=== PATIENT | male | born 1935 | race Caucasian/White ===

== ENCOUNTER 2016-06-20 13:51 | Outpatient (CLI) | payer MEDICARE | END 2016-06-20 13:52 | disposition home or self-care (01) | DX: I48.91 Unspecified atrial fibrillation (principal) ==

== ENCOUNTER 2016-07-28 08:00 | Outpatient (CLI) | payer MEDICARE | END 2016-07-28 08:01 | disposition home or self-care (01) | DX: I48.91 Unspecified atrial fibrillation (principal) ==

== ENCOUNTER 2016-08-29 08:00 | Outpatient (CLI) | payer MEDICARE | END 2016-08-29 23:59 | DX: I48.91 Unspecified atrial fibrillation (principal) ==

== ENCOUNTER 2016-09-11 13:10 | Outpatient (CLI) | payer MEDICARE | END 2016-09-11 13:11 | DX: I48.91 Unspecified atrial fibrillation (principal) ==

== ENCOUNTER 2016-09-25 14:12 | Outpatient (CLI) | payer MEDICARE | END 2016-09-25 14:13 | DX: I48.91 Unspecified atrial fibrillation (principal) ==

== ENCOUNTER 2016-11-30 08:00 | Outpatient (CLI) | payer MEDICARE | END 2016-11-30 08:01 | disposition home or self-care (01) | LOC: LAB.N 08:00 | PROVIDERS: ATTEND Physician Assistant | DX: I48.91 Unspecified atrial fibrillation (principal) | CPT/HCPCS: 85610 ==

== ENCOUNTER 2016-12-22 08:00 | Outpatient (CLI) | payer MEDICARE | END 2016-12-22 08:01 | disposition home or self-care (01) | LOC: LAB.N 08:00 | PROVIDERS: ATTEND Physician Assistant | DX: I48.91 Unspecified atrial fibrillation (principal) | CPT/HCPCS: 85610 ==

== ENCOUNTER 2017-03-09 11:35 | Outpatient (CLI) | payer MEDICARE | END 2017-03-09 11:36 | disposition home or self-care (01) | LOC: LAB.N 11:35 | PROVIDERS: ATTEND Physician Assistant | DX: I48.91 Unspecified atrial fibrillation (principal) | CPT/HCPCS: 85610 ==

== ENCOUNTER 2017-05-01 20:20 | Outpatient (CLI) | payer MEDICARE | END 2017-05-01 20:21 | disposition home or self-care (01) | LOC: LAB.N 20:20 | PROVIDERS: ATTEND Physician Assistant | DX: I48.91 Unspecified atrial fibrillation (principal) | CPT/HCPCS: 85610 ==

== ENCOUNTER 2017-07-10 14:28 | Outpatient (CLI) | payer MEDICARE | END 2017-07-10 14:29 | LOC: LAB.N 14:28 | PROVIDERS: ATTEND Physician Assistant | DX: I48.91 Unspecified atrial fibrillation (principal) | CPT/HCPCS: 85610 ==

== ENCOUNTER 2017-09-28 08:00 | Outpatient (CLI) | payer MEDICARE | END 2017-09-28 08:01 | LOC: LAB.N 08:00 | PROVIDERS: ATTEND Physician Assistant | DX: I48.91 Unspecified atrial fibrillation (principal) | CPT/HCPCS: 85610 ==

== ENCOUNTER 2018-02-09 16:41 | Outpatient (CLI) | payer MEDICARE, OTHER | END 2018-02-09 16:42 | disposition critical access hospital (66) | LOC: EMS 16:41 | PROVIDERS: ATTEND Surgery | DX: M25.551 Pain in right hip (principal); S01.01XA Laceration without foreign body of scalp, initial encounter; W18.39XA Other fall on same level, initial encounter; Y92.009 Unspecified place in unspecified non-institutional (private) residence as the place of occurrence of the external cause | CPT/HCPCS: A0425; A0429 ==

== ENCOUNTER 2018-02-09 16:51 | Inpatient (IN) | payer MEDICARE, OTHER ==
--- NOTE | 2018-02-09 17:03 | ED Physician Documentation ---
PD HPI MAJOR TRAUMA - Stated complaint Stated Complaint: GLF - Chief complaint Chief Complaint: Ext Problem - History obtained from History obtained from: Patient, EMS - History of Present Illness Mechanism of injury: Fell Where injury occurred: Home Timing - onset: How many hours ago (1) Injury(ies) location: Head, Right Lower Extremity (hip) Pain level max: 8 Pain level now: 5 Quality of pain: Pain, Dull Associated symptoms: No: LOC, AMS, Amnesia, Seizures, Ear drainage, Nasal drainage, Neck pain, Weakness, Paresthesias, Dyspnea, Nausea / vomiting Symptoms improve with: Rest Worsens with: Movement, Palpation Contributing factors: Anticoagulated (warfarin for afib) Similar symptoms before: Has not had sx before Recently seen: Not recently seen Review of Systems Ten Systems: 10 systems reviewed and negative Constitutional: denies: Fever, Chills Ears: denies: Ear pain Nose: denies: Rhinorrhea / runny nose, Congestion Throat: denies: Sore throat Cardiac: denies: Chest pain / pressure Respiratory: denies: Cough GI: denies: Abdominal Pain, Nausea, Vomiting, Diarrhea Skin: denies: Rash Musculoskeletal: denies: Neck pain Neurologic: denies: Focal weakness, Numbness, Syncope, Seizure, Confused, Altered mental status PD PAST MEDICAL HISTORY - Past Medical History Past Medical History: Yes Cardiovascular: Hypertension, Atrial fibrillation Endocrine/Autoimmune: Type 2 diabetes : Benign prostate hypertrophy - Past Surgical History Past Surgical History: Yes Ortho: Knee replacement (b) - Present Medications Home Medications: Ambulatory Orders Medication Instructions Recorded Confirmed Atorvastatin Calcium 40 mg PO 02/09/18 Doxazosin Mesylate [Cardura Xl] 8 mg PO 02/09/18 02/09/18 Ferrous Sulfate 325 mg PO 02/09/18 Finasteride [Proscar] 02/09/18 02/09/18 Levothyroxine Sodium 50 mcg PO 02/09/18 Lisinopril 5 mg PO 02/09/18 Sitagliptin Phosphate [Januvia] 25 mg PO 02/09/18 Warfarin Sodium [Coumadin] 2.5 mg PO DAILY 02/09/18 02/09/18 Warfarin [Coumadin] 5 mg PO 1400 02/09/18 02/09/18 metFORMIN [Glucophage] 500 mg PO BIDWM 02/09/18 02/09/18 - Allergies Allergies/Adverse Reactions: Allergies Allergy/AdvReac Type Severity Reaction Status Date / Time No Known Drug Allergies Allergy Verified 02/09/18 16:59 - Living Situation Living Situation: reports: With family Living Arrangement: reports: At home - Social History Does the pt smoke?: No Does the pt have substance abuse?: No PD ED PE NORMAL - Vitals Vital signs reviewed: Yes - General General: Alert and oriented X 3, No acute distress, Well developed/nourished - HEENT HEENT: PERRL, Moist mucous membranes, Other (abrasion to occiput. No palpable skull fractures. no hematoma) - Neck Neck: Supple, no meningeal sign, No bony TTP (No step-off or deformity. Full range of motion without pain) - Cardiac Cardiac: RRR - Respiratory Respiratory: No respiratory distress, Clear bilaterally - Abdomen Abdomen: Soft, Non tender, Non distended - Back Back: No spinal TTP - Derm Derm: Warm and dry - Extremities Extremities: Other (Right lower extremity is externally rotated and shortened. Neurovascularly intact) - Neuro Neuro: Alert and oriented X 3 - Psych Psych: Normal mood, Normal affect Results - Vitals Vitals: Vital Signs - 24 hr 02/09/18 16:54 Heart Rate 66 Respiratory 14 Rate Blood Pressure 137/66 H O2 Saturation 100 Oxygen O2 Source Room air - EKG (time done) 1709 Rate: Rate (enter#) (64) Rhythm: NSR [place]: Normal Intervals: Normal [place] QRS: Normal Ischemia: Normal ST segments Computer interpretation: Agree with computer - Labs Labs: Laboratory Tests 02/09/18 02/09/18 02/09/18 17:03 17:03 17:03 WBC 4.8 RBC 3.49 L Hgb 11.2 L Hct 31.9 L MCV 91.5 MCH 32.2 H MCHC 35.1 RDW 14.2 Plt Count 170 MPV 7.2 L Neut # (Auto) 3.7 Lymph # (Auto) 0.7 L [place] # (Auto) 0.3 Eos # (Auto) 0.1 Baso # (Auto) 0.1 Absolute Nucleated RBC 0.00 Nucleated RBC % 0.0 PT 22.1 H INR 2.0 H APTT 31.9 Sodium Potassium Chloride Carbon Dioxide Anion Gap BUN Creatinine Estimated GFR (MDRD) Glucose Calcium Total Bilirubin AST ALT Alkaline Phosphatase Total Protein Albumin Globulin Albumin/Globulin Ratio Lipase Blood Type O POSITIVE Antibody Screen NEGATIVE 02/09/18 17:03 WBC RBC Hgb Hct MCV MCH MCHC RDW Plt Count MPV Neut # (Auto) Lymph # (Auto) [place] # (Auto) Eos # (Auto) Baso # (Auto) Absolute Nucleated RBC Nucleated RBC % PT INR APTT Sodium 134 L Potassium 3.8 Chloride 102 Carbon Dioxide 23 Anion Gap 9.0 BUN 16 Creatinine 0.8 Estimated GFR (MDRD) 93 Glucose 182 H Calcium 9.0 Total Bilirubin 0.7 AST 22 ALT 19 Alkaline Phosphatase 75 Total Protein 6.8 Albumin 4.2 Globulin 2.6 Albumin/Globulin Ratio 1.6 Lipase 37 Blood Type Antibody Screen - Rads (name of study) R hip xray Radiology: Prelim report reviewed, EMP read contemporaneously, See rad report ( Intertrochanteric right hip fracture. ) head CT Radiology: Prelim report reviewed, EMP read contemporaneously, See rad report ( No acute abnormality) cxr Radiology: Prelim report reviewed, EMP read contemporaneously, See rad report ( No acute abnormality) PD MEDICAL DECISION MAKING - ED course Complexity details: reviewed results, re-evaluated patient, considered differential, d/w patient, d/w family, d/w technology sales consultant ED course: Patient is an 82-year-old male who presents to the emergency department after a fall today. Suffered a right intertrochanteric fracture of the hip. Discussed the case with Dr. Pulido, orthopedics who will plan to take to the operating room after medical stabilization and clearance. Discussed case with Dr. Bailey, hospitalist who accepts. No acute findings on head CT. Patient declines pain medication. He is on warfarin as well and will allow the hospitalist to reverse his INR. This document was made in part using voice recognition software. While efforts are made to proofread this document, sound alike and grammatical errors may occur. - Sepsis Event Vital Signs: Vital Signs - 24 hr 02/09/18 16:54 Heart Rate 66 Respiratory 14 Rate Blood Pressure 137/66 H O2 Saturation 100 Oxygen O2 Source Room air Departure - Departure Disposition: 66 [facility] DC/Xfer Clinical Impression: Intertrochanteric fracture of right hip Qualifiers: Encounter type: initial encounter Fracture type: closed Fracture alignment: displaced Qualified Code(s): S72.141A - Displaced intertrochanteric fracture of right femur, initial encounter for closed fracture Condition: Good Discharge Date/Time: 02/09/18 19:16
[2018-02-09 17:10] LABS: BASOPHILS # (AUTO) 0.1 10^3/uL (0.0-0.1); BASOPHILS % (AUTO) 1.1 %; EOSINOPHILS # (AUTO) 0.1 10^3/uL (0.0-0.7); EOSINOPHILS % (AUTO) 1.3 %; HGB - HEMOGLOBIN 11.2 g/dL (14.0-18.0); LYMPHOCYTES # (AUTO) 0.7 10^3/uL (1.5-3.5); LYMPHOCYTES % (AUTO) 14.6 %; MEAN CORPUSCULAR HEMOGLOBIN 32.2 pg (27.0-31.0); MEAN CORPUSCULAR HGB CONC 35.1 g/dL (32.0-36.0); MEAN CORPUSCULAR VOLUME 91.5 fL (80.0-94.0); MEAN PLATELET VOLUME 7.2 fL (7.4-11.4); MONOCYTES # (AUTO) 0.3 10^3/uL (0.0-1.0); MONOCYTES % (AUTO) 6.1 %; NEUTROPHILS # (AUTO) 3.7 10^3/uL (1.5-6.6); NEUTROPHILS % (AUTO) 76.9 %; PLT - PLATELET COUNT 170 10^3/uL (130-450); RED BLOOD COUNT 3.49 10^6/uL (4.70-6.10); RED CELL DISTRIBUTION WIDTH 14.2 % (12.0-15.0); WHITE BLOOD COUNT 4.8 x10^3/uL (4.8-10.8)
[2018-02-09 17:22] LABS: PT - PROTHROMBIN TIME 22.1 secs (9.9-12.6)
[2018-02-09 17:23] LABS: ALBUMIN 4.2 g/dL (3.2-5.5); ALBUMIN/GLOBULIN RATIO 1.6 (1.0-2.2); BILIRUBIN,TOTAL 0.7 mg/dL (0.2-1.0); CREATININE 0.8 mg/dL (0.6-1.2); TOTAL PROTEIN 6.8 g/dL (6.7-8.2)
--- NOTE | 2018-02-09 17:55 | XRAY Report ---
Reason: preop hip fx Procedure Date: 02/09/2018 Accession Number: [id number] / [id number] Procedure: XR - Chest 1 View X-Ray CPT Code: 83241 FULL RESULT: EXAM: CHEST RADIOGRAPHY EXAM DATE: 02/09/2018 05:36 PM. CLINICAL HISTORY: Preop hip fx. COMPARISON: None. TECHNIQUE: 1 view. FINDINGS: Lungs/Pleura: Bronchiectasis and scarring seen at the right lung apex. The left lung is clear. No pleural effusion or pneumothorax. Mediastinum: Within exam limitations, the cardiomediastinal contour is normal. Other: None. IMPRESSION: Right apical scarring and bronchiectasis. No acute cardiopulmonary process. RADIA
--- NOTE | 2018-02-09 17:58 | XRAY Report ---
Reason: fall, R hip injury Procedure Date: 02/09/2018 Accession Number: [id number] / [id number] Procedure: XR - Hip w/Pelvis 2-3V RT CPT Code: FULL RESULT: EXAM: RIGHT HIP AND PELVIS RADIOGRAPHY EXAM DATE: 02/09/2018 05:36 PM. HISTORY: Fall, R hip injury. COMPARISONS: None. TECHNIQUE: 1 view of the pelvis and 1 view of the hip. FINDINGS: Bones: There is an intertrochanteric right hip fracture with moderate displacement of the lesser trochanteric fracture fragment. Joints: The bilateral hip, pubis symphysis, and sacroiliac joints are preserved. Soft Tissues: Normal. No soft tissue swelling. IMPRESSION: Intertrochanteric right hip fracture. RADIA
--- NOTE | 2018-02-09 18:05 | CT Report ---
Reason: fall, head injury Procedure Date: 02/09/2018 Accession Number: [id number] / [id number] Procedure: CT - Head W/O CPT Code: FULL RESULT: EXAM: CT HEAD EXAM DATE: 02/09/2018 05:31 PM. CLINICAL HISTORY: Fall. Head injury. COMPARISON: None. TECHNIQUE: Multiaxial CT images were obtained from the foramen magnum to the vertex. Reformats: coronal. IV contrast: None. In accordance with CT protocol optimization, one or more of the following dose reduction techniques were utilized for this exam: automated exposure control, adjustment of mA and/or KV based on patient size, or use of iterative reconstructive technique. FINDINGS: Parenchyma: No intraparenchymal hemorrhage. No evidence of mass, midline shift, or CT findings of acute infarction. Ahuja-white differentiation is distinct. Mild chronic periventricular microangiopathic white matter changes are evident. Extraaxial Spaces: Normal for age. No subdural or epidural collections identified. Ventricles: The ventricles and cortical sulci are enlarged, consistent with age-related tissue loss. Sinuses and orbits: Chronic mucosal changes in the maxillary sinuses, otherwise the imaged paranasal sinuses, orbits, and mastoids show no significant abnormality. Bones: No evidence of fracture or calvarial defect. Other: None. IMPRESSION: Mild age-related cortical atrophic changes without evidence of acute intracranial abnormality. RADIA
[2018-02-09] MEDS ORDERED: MORPHINE 2 MG/ML CARPUJECT IVP PRN (18:15)
[2018-02-09] MEDS ORDERED: ONDANSETRON 4 MG/2 ML VIAL IVP PRN (18:15)
[2018-02-09] MEDS ORDERED: PHYTONADIONE 10 MG/ML AMP IVP STA ×2 (18:26)
--- NOTE | 2018-02-09 18:54 | HISTORY & PHYSICAL EXAMINATION ---
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 Pt report when he changed his pants at the hallway of his home, he fall in the ground. He denies loss of consciousness. He immediately recognized severe pain at his right hip. he denies other injuries. Xray of hip reveals intertrochanteric right hip fracture. INR is 2.0. Pt is planned to have surgery tomorrow. Vitamin K is planned to prescribe. Pt denies other complaints. Pt is hemodynamic stable, HR is 66, lab test is unremarkable. History - Past Medical History Cardiovascular: reports: Hypertension, Atrial fibrillation Endocrine/Autoimmune: reports: Type 2 diabetes : reports: Benign prostate hypertrophy MRSA Hx?: No - Past Surgical History Ortho: reports: Knee replacement (b) - Family & Social History Family History: Mother: , Father: Family History Comment/Other: pt is living at [facility] with his Living arrangement: At home Living Situation: With family Social History Notes: pt denies cigarett smoking, alcohol and drug issue - POLST POLST Status: Full Code Meds/Allgy - Home Medications Home Medications: Ambulatory Orders Medication Instructions Recorded Confirmed Atorvastatin Calcium 40 mg PO 02/09/18 Doxazosin Mesylate [Cardura Xl] 8 mg PO 02/09/18 02/09/18 Ferrous Sulfate 325 mg PO 02/09/18 Finasteride [Proscar] 02/09/18 02/09/18 Levothyroxine Sodium 50 mcg PO 02/09/18 Lisinopril 5 mg PO 02/09/18 Sitagliptin Phosphate [Januvia] 25 mg PO 02/09/18 Warfarin Sodium [Coumadin] 2.5 mg PO DAILY 02/09/18 02/09/18 Warfarin [Coumadin] 5 mg PO 1400 02/09/18 02/09/18 metFORMIN [Glucophage] 500 mg PO BIDWM 02/09/18 02/09/18 - Allergies Allergies/Adverse Reactions: Allergies Allergy/AdvReac Type Severity Reaction Status Date / Time No Known Drug Allergies Allergy Verified 02/09/18 16:59 Review of Systems - Constitutional Constitutional: denies: Fatigue, Fever, Chills, Malaise, Weakness, Poor appetite , Diaphoresis, Night sweats - Eyes Eyes: denies: Pain, Irritation, Amaurosis, Blurred vision, Spots in vision, Field loss, Vision loss, Dipolpia - Ears, Nose & Throat Ears, Nose & Throat: denies: Ear pain, Hearing loss, Hearing aids, Tinnitus, Vertigo, Nasal pain, Nasal discharge, Nosebleeds, Nasal obstruction, Nasal congestion, Postnasal drainage, Dentures, Hoarseness - Cardiovascular Cariovascular: denies: Irregular heart rate, Palpitations, Chest pain, Edema, Lightheadedness, Syncope, Exertional dyspnea, Decr. exercise tolerance - Respiratory Respiratory: denies: Cough, Sputum production, Wheezing, Snoring, Hemoptysis, Orthopnea, SOB at rest, SOB with exertion - Gastrointestinal Gastrointestinal: denies: Abdominal pain, Abdominal distention, Constipation, Diarrhea, Rectal bleeding, Black stools, Nausea, Vomiting, Bile emesis, Mike blood emesis - Genitourinary Genitourinary: denies: Dysuria, Frequency, Urgency, Hematuria, Incontinence, Flank pain, Nocturia, Urethral discharge - Musculoskeletal Musculoskeletal: reports: Limited range of motion, Joint pain. denies: Muscle pain, Back pain, Muscle aches, Stiffness, Muscle weakness, Gout - Integumentary Integumentary: denies: Rash, Pruritis, Lesions, Dryness, Lumps, Acne, Pigment changes, Nail changes - Neurological Neurological: denies: General weakness, Focal weakness, Headache, Dizziness, Numbness, Memory problems, Pre-existing deficit, Abnormal gait, Seizures, Incoordination, Slurred speech - Psychiatric Psychiatric: denies: Depression, Anxiety, Suicidal, Delusions, Hallucinations, Homicidal - Endocrine Endocrine: denies: Polyuria, Polydypsia, Polyphagia, Intolerance to cold - Hematologic/Lymphatic Hematologic/Lymphatic: denies: Anemia, Bruising, Petechiae, Blood clots, Lymphadenopathy, Bleeding tendencies Exam - Vital Signs Reviewed Vital Signs: Yes Vital Signs: Vital Signs x48h Pulse Resp BP Pulse Ox 02/09/18 16:54 66 14 137/66 H 100 - Physical Exam General Appearance: positive: No acute distress, Alert. negative: Lethargic Eyes Bilateral: positive: Normal inspection, PERRL, No lid inflammation, Conjunctivae nml ENT: positive: ENT inspection nml, Pharynx nml, No signs of dehydration. negative: Purulent nasal drainage, Pharyngeal erythema, Oral lesions Neck: positive: Nml inspection, Thyroid nml, No JVD, Trachea midline. negative : Thyromegaly, Lymphadenopathy (R), Lymphadenopathy (L), Stiff neck, Swelling/ bruising, Tracheal deviation Respiratory: positive: Chest non-tender, No respiratory distress, Breath sounds nml. negative: Wheezes, Rales, Rhonchi Cardiovascular: positive: Regular rate & rhythm, No murmur, No gallop. negative : Irregularly irregular, Extrasystoles, Tachycardia, Bradycardia, JVD present, Systolic murmur, Diastolic murmur Peripheral Pulses: positive: 2+ Abdomen: positive: Non-tender, No organomegaly, Nml bowel sounds, No distention. negative: Tenderness, Guarding, Rebound Back: positive: Nml inspection. negative: CVA tenderness (R), CVA tenderness (L ) Skin: positive: Color nml, No rash, Warm, Dry. negative: Cyanosis, Diaphoresis , Pallor Extremities: positive: Nml appearance. negative: Calf tenderness, Joint swelling, Jeana's sign/cords Neurologic/Psychiatric: positive: Oriented x3, Sensation nml, Mood/affect nml. negative: Weakness, Sensory loss, Facial droop, Slurred/abnml speech, Depressed mood/affect Conclusion/Plan - Problem List (1) Intertrochanteric fracture of right hip Conclusion/Plan: consult with orthopedics pain control 10 mg vitamin K IV to anti-coagulation Coumadin, not his INR is 2.0 NPO after midnight, IVF of NS Revised cardiac Risk index for pre-operative Risk is 0.9% Qualifiers: Encounter type: initial encounter Fracture type: closed Fracture alignment: displaced Qualified Code(s): S72.141A - Displaced intertrochanteric fracture of right femur, initial encounter for closed fracture (2) DM2 (diabetes mellitus, type 2) Conclusion/Plan: resume home DM meds, hold Metformin slide scale, ACHS check A1C hypoglycemia (3) Afib Conclusion/Plan: his HR is stable, hold Coumadin now PT/INR daily (4) HTN (hypertension) Conclusion/Plan: stable, will continue home meds vital monitor (5) BPH (benign prostatic hyperplasia) Conclusion/Plan: stable, will continue home meds (6) Hyperlipidemia Conclusion/Plan: stable, will continue home meds (7) DVT prophylaxis Conclusion/Plan: SCD and Lovenox (8) Full code status Conclusion/Plan: pt request full code status - Lab Results Fish Bones: 02/10/18 05:25 02/10/18 05:25 Core Measures - Anticipated LOS I expect patient to be DC'd or transferred within 96 hours.: Yes - DVT/VTE - Prophylaxis VTE/DVT Device ordered at admit?: Yes VTE/DVT Prophylaxis med ordered at admit?: Yes
--- NOTE | 2018-02-09 19:37 | PROVIDER PROGRESS NOTE ---
Subjective - Prog Note Date Prog Note Date: 02/09/18 Prog Note Time: 19:34 - Subjective Pt reports feeling: Worse (Patient [facility] a GLF at home today, injuring his right hip. Was unable to stand or weight bear on right side. XR in ED showed a right IT hip fracture) Objective - Vital Signs/Intake & Output Vital Signs: Vital Signs x48h Temp Pulse Resp BP Pulse Ox 02/09/18 19:29 36.2 C L 74 20 157/70 H 100 - Lab Results Fish Bones: 02/09/18 17:03 02/09/18 17:03 - Diagnostic Imaging Diagnostic Imaging Comments: XR show a right IT hip fracture with a large, displaced lesser trochanteric fragment - Other Results/Comments Other Results/Comments: Right leg is slightly shortened and externally rotated. Painful right hip motion. Moves toes well. SENSATION INTACT. GOOD CAP FILLING Assessment/Plan - Problem List (1) Intertrochanteric fracture of right hip Impression: closed and unstable fracture PLAN: After patient INR has been corrected (INR<1.3), we will plan to reduce and stabilze right hip fracture with a lonng interTan nailing of fracture. Tentatively scheduled for 0800 Sun AM. Risk/benefit of surgery explained to patient and his . Questions answered. Leg marked and consent signed. Qualifiers: Encounter type: initial encounter Fracture type: closed Fracture alignment: displaced Qualified Code(s): S72.141A - Displaced intertrochanteric fracture of right femur, initial encounter for closed fracture
[2018-02-09] MEDS ORDERED: PHYTONADIONE 10 MG/ML AMP IVP SCH (20:30)
[2018-02-09] MEDS: SODIUM CHLORIDE FLUSH 0.9% 10 ML SYRINGE IVP PRN (20:36)
[2018-02-09] MEDS ORDERED: PHYTONADIONE INJ (ADULT) 5 MG in SODIUM CHLORIDE 0.9% 50 ML IV SCH (20:45)
[2018-02-09] MEDS: FERROUS SULFATE 325 MG TABLET PO SCH (22:22)
[2018-02-09] MEDS: INSULIN ASPART 300 UNIT/3 ML PEN SUBQ SCH (22:23)
[2018-02-09] MEDS: MAGNESIUM OXIDE 400 MG TABLET PO SCH (22:23)
[2018-02-09] MEDS: DOXAZOSIN 4 MG TABLET PO SCH (22:23)
[2018-02-09] MEDS: ATORVASTATIN 40 MG TABLET PO SCH (22:23)
[2018-02-09] MEDS ORDERED: diphenhydrAMINE 25 MG CAPSULE PO PRN (22:30)
[2018-02-09] MEDS: SODIUM CHLORIDE FLUSH 0.9% 10 ML SYRINGE IVP SCH (23:51)
[2018-02-10] MEDS ORDERED: SODIUM CHLORIDE 0.9% 1,000 ML IV SCH (01:00)
--- NOTE | 2018-02-10 01:39 | CONSULTATION NOTE ---
DATE OF SERVICE: 02/09/2018 Physician: Preston Pulido MD ORTHOPEDIC CONSULTATION REFERRING PHYSICIAN: Murray Colin M.D., of the ED. 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 He fell onto his right side. He noted immediate pain and deformity to his upper leg. He was unable to stand or weight bear due to pain. Denies any other injuries. There was no lo ss of consciousness or nausea, vomiting. No prior hip fractures. Patient was taken by ambulance to the emergency room here at [facility] where x-ray showed an unstable, closed, right int ertrochanteric hip fracture. PAST MEDICAL HISTORY: Significant for intermittent atrial fibrillation, for which he has been treate d with Coumadin. Patient also is a diabetic. PHYSICAL EXAMINATION: Patient's right hip was examined. He had focal tenderness on palpation latera lly around the hip. His right leg was slightly shortened and externally rotated. There was painful range of motion to the hip. Patient is able to move his toes on command. Sensation intact throughou t the lower extremity. Good capillary filling noted. X-RAYS: Show an intertrochanteric right hip fracture with a large lesser trochanteric fragment displ aced. ASSESSMENT 1. Closed, unstable, right, intertrochanteric hip fracture. 2. History of atrial fibrillation. 3. Chronic Coumadin treatment for #2. 4. Diabetes. PLAN: Patient was admitted to the medical service for medical stabilization and management of his [facility] medical conditions. They will attempt to reverse his Coumadin with IV vitamin K this evening. It is anticipated that if we can bring his INR to 1.3 or less, we should be able to proceed with ochoa gical fixation of this fracture. If the morning blood draw shows the INR to be longer than 1.3, we w ill supplement with fresh frozen plasma as indicated. We will plan a closed reduction and a long Int ertan nailing of his fracture. The risks and benefits of surgery were explained to patient and his w brett including anesthesia risks, nonunion, malunion, hardware failure, blood loss, infection, blood cl ots, etc. All of his questions were answered. They have consented to proceed with surgical fixation likely Sunday morning at 8 o'clock, pending the correction of his INR and anticoagulation. The leg has been marked. Consent signed. TD: 02/09/2018 19:55
[2018-02-10] MEDS ORDERED: ceFAZolin 2 GM/50 ML 2 GM/50 ML BAG IV SCH (05:00)
[2018-02-10] MEDS: LEVOTHYROXINE 25 MCG TABLET PO SCH ×2 (05:21→12:02)
[2018-02-10 06:04] LABS: BASOPHILS % (AUTO) 0.2 %; EOSINOPHILS % (AUTO) 0.2 %; HGB - HEMOGLOBIN 8.7 g/dL (14.0-18.0); INR 1.5 (0.8-1.2); LYMPHOCYTES # (AUTO) 0.4 10^3/uL (1.5-3.5); MEAN CORPUSCULAR HEMOGLOBIN 32.4 pg (27.0-31.0); MEAN CORPUSCULAR HGB CONC 35.5 g/dL (32.0-36.0); MEAN CORPUSCULAR VOLUME 91.3 fL (80.0-94.0); MEAN PLATELET VOLUME 7.7 fL (7.4-11.4); MONOCYTES # (AUTO) 0.4 10^3/uL (0.0-1.0); MONOCYTES % (AUTO) 8.5 %; NEUTROPHILS % (AUTO) 82.1 %; PLT - PLATELET COUNT 154 10^3/uL (130-450); PT - PROTHROMBIN TIME 16.4 secs (9.9-12.6); RED BLOOD COUNT 2.68 10^6/uL (4.70-6.10); RED CELL DISTRIBUTION WIDTH 14.3 % (12.0-15.0); WHITE BLOOD COUNT 4.9 x10^3/uL (4.8-10.8)
[2018-02-10 06:14] LABS: ALBUMIN 3.5 g/dL (3.2-5.5); ALBUMIN/GLOBULIN RATIO 1.5 (1.0-2.2); BILIRUBIN,TOTAL 0.8 mg/dL (0.2-1.0); CALCIUM 8.4 mg/dL (8.5-10.3); CREATININE 0.7 mg/dL (0.6-1.2); MAGNESIUM 1.7 mg/dL (1.7-2.8); TOTAL PROTEIN 5.8 g/dL (6.7-8.2)
[2018-02-10 06:17] LABS: HB2 TOTAL 8.9 g/dL; HEMOGLOBIN A1C 0.31 g/dL; HEMOGLOBIN A1C % 5.3 % (4.6-6.2)
--- NOTE | 2018-02-10 07:13 | ANESTHESIA ---
Pre-Anesthesia VS, & Labs - Diagnosis Right Hip fracture - Procedure Right Hip Nailing Vital Signs: Temp Pulse Resp BP Pulse Ox 36.9 C 73 14 123/60 99 02/10/18 05:30 02/10/18 05:30 02/10/18 05:30 02/10/18 05:30 02/10/18 05:30 Height 6 ft 2 in Weight (kg) 99.5 kg Body Mass Index 28.1 - NPO >8 hours - Lab Results Lab results reviewed: Yes Fish Bones: 02/10/18 05:25 02/10/18 05:25 Other Lab Results: Laboratory Results - last 24 hr 02/09/18 02/09/18 02/09/18 17:03 17:03 17:03 WBC 4.8 RBC 3.49 L Hgb 11.2 L Hct 31.9 L MCV 91.5 MCH 32.2 H MCHC 35.1 RDW 14.2 Plt Count 170 MPV 7.2 L Neut # (Auto) 3.7 Lymph # (Auto) 0.7 L Stokes # (Auto) 0.3 Eos # (Auto) 0.1 Baso # (Auto) 0.1 Absolute Nucleated RBC 0.00 Nucleated RBC % 0.0 PT 22.1 H INR 2.0 H APTT 31.9 Sodium Potassium Chloride Carbon Dioxide Anion Gap BUN Creatinine Estimated GFR (MDRD) Glucose Glycated Hemoglobin Estim Average Glucose Calcium Magnesium Total Bilirubin AST ALT Alkaline Phosphatase Total Protein Albumin Globulin Albumin/Globulin Ratio Lipase TSH Blood Type O POSITIVE Antibody Screen NEGATIVE 02/09/18 02/10/18 02/10/18 17:03 05:25 05:25 WBC 4.9 RBC 2.68 L Hgb 8.7 L Hct 24.5 L MCV 91.3 MCH 32.4 H MCHC 35.5 RDW 14.3 Plt Count 154 MPV 7.7 Neut # (Auto) 4.0 Lymph # (Auto) 0.4 L Stokes # (Auto) 0.4 Eos # (Auto) 0.0 Baso # (Auto) 0.0 Absolute Nucleated RBC 0.00 Nucleated RBC % 0.0 PT INR APTT Sodium 134 L Potassium 3.8 Chloride 102 Carbon Dioxide 23 Anion Gap 9.0 BUN 16 Creatinine 0.8 Estimated GFR (MDRD) 93 Glucose 182 H Glycated Hemoglobin 5.3 Estim Average Glucose 105 H Calcium 9.0 Magnesium Total Bilirubin 0.7 AST 22 ALT 19 Alkaline Phosphatase 75 Total Protein 6.8 Albumin 4.2 Globulin 2.6 Albumin/Globulin Ratio 1.6 Lipase 37 TSH Blood Type Antibody Screen 02/10/18 02/10/18 02/10/18 05:25 05:25 05:25 WBC RBC Hgb Hct MCV MCH MCHC RDW Plt Count MPV Neut # (Auto) Lymph # (Auto) Stokes # (Auto) Eos # (Auto) Baso # (Auto) Absolute Nucleated RBC Nucleated RBC % PT 16.4 H INR 1.5 H APTT Sodium 128 L Potassium 4.0 Chloride 98 L Carbon Dioxide 23 Anion Gap 7.0 BUN 15 Creatinine 0.7 Estimated GFR (MDRD) 108 Glucose 218 H Glycated Hemoglobin Estim Average Glucose Calcium 8.4 L Magnesium 1.7 Total Bilirubin 0.8 AST 20 ALT 16 Alkaline Phosphatase 51 Total Protein 5.8 L Albumin 3.5 Globulin 2.3 Albumin/Globulin Ratio 1.5 Lipase TSH 1.51 Blood Type Antibody Screen Home Medications and Allergies Home Medications: Ambulatory Orders Medication Instructions Recorded Confirmed Atorvastatin Calcium 40 mg PO 02/09/18 Doxazosin Mesylate [Cardura Xl] 8 mg PO 02/09/18 02/09/18 Ferrous Sulfate 325 mg PO 02/09/18 Finasteride [Proscar] 02/09/18 02/09/18 Levothyroxine Sodium 50 mcg PO 02/09/18 Lisinopril 5 mg PO 02/09/18 Sitagliptin Phosphate [Januvia] 25 mg PO 02/09/18 Warfarin Sodium [Coumadin] 2.5 mg PO DAILY 02/09/18 02/09/18 Warfarin [Coumadin] 5 mg PO 1400 02/09/18 02/09/18 metFORMIN [Glucophage] 500 mg PO BIDWM 02/09/18 02/09/18 Allergies/Adverse Reactions: Allergies Allergy/AdvReac Type Severity Reaction Status Date / Time No Known Drug Allergies Allergy Verified 02/09/18 16:59 Anes History & Medical History - Anesthetic History Anesthesia Complications: reports: No previous complications Family history of Anesthesia Complications: Denies Family history of Malignant Hyperthermia: Denies - Medical History Cardiovascular: reports: Hypertension, Atrial fibrillation Pulmonary: reports: None Gastrointestinal: reports: GERD (Controlled with medication) Urinary: reports: Benign prostate hypertrophy Neuro: reports: None Musculoskeletal: reports: None Endocrine/Autoimmune: reports: Type 2 diabetes, HyPOthyroidism Blood Disorders: reports: None Skin: reports: None Smoking Status: Current every day smoker Psychosocial: reports: No issues indicated Other Past Medical History: Coumadin on hold. Patient received Vitamen K and FFP available. Type and crossmatch 2 units PRBC for low HgB - Surgical History General: Other (Bilateral hernia repair) Orthopedic: Knee replacement (b), Carpal Tunnel surgery Results - EKG Results EKG Comparison: Reviewed EKG Exam General: Alert, Oriented x3, Cooperative, No acute distress Dental: WNL Mouth Openin Fingerbreadth Neck Mobility: Normal Mallampati classification: II Thyromental Distance: 4-6 cm Respiratory: Lungs clear, Normal breath sounds, No respiratory distress, No accessory muscle use Cardiovascular: Regular rate, Other (II/IV systolic murmur. Patient reports he had a normal ECHO) Mental/Cognitive Status: Alert/Oriented X3, Normal for patient Cognitive Status: Within normal limits Plan Anesthesia Type: General Consent for Procedure(s) Verified and Reviewed: Yes Code Status: Attempt Resuscitation ASA classification: 3-Severe systemic disease Is this case an emergency?: Yes
[2018-02-10] MEDS ORDERED: BUPIVACAINE 0.25%-EPI 1:200000 PF 30 ML VIAL ONE (07:39)
[2018-02-10 08:00] LABS: INR 1.4 (0.8-1.2); PT - PROTHROMBIN TIME 15.3 secs (9.9-12.6)
[2018-02-10 08:00] LABS: MEAN RETIC VALUE 108.6; RED BLOOD COUNT 2.69 10^6/uL (4.70-6.10)
--- NOTE | 2018-02-10 08:17 | PROVIDER PROGRESS NOTE ---
Subjective - Prog Note Date Prog Note Date: 02/10/18 Prog Note Time: 08:14 - Subjective Pt reports feeling: No change Objective - Vital Signs/Intake & Output Vital Signs: Vital Signs x48h Temp Pulse Pulse Resp BP BP Pulse Ox 02/10/18 07:31 36.8 C 79 14 134/79 H 02/10/18 07:29 14 99 02/10/18 07:21 37.3 C 78 16 129/63 02/10/18 05:30 36.9 C 73 14 123/60 99 02/10/18 04:37 37.1 C 72 16 117/54 L 96 Intake & Output: Intake & Output 02/07/18 02/08/18 02/09/18 02/10/18 23:59 23:59 23:59 23:59 Intake Total 700.5 375 Output Total 150 400 Balance 550.5 -25 - Lab Results Fish Bones: 02/10/18 05:25 02/10/18 05:25 Other Labs: Lab Results x24hrs 02/10/18 02/10/18 02/10/18 Range/Units 07:36 05:25 05:25 WBC (4.8-10.8) x10^3/uL RBC 2.69 L (4.70-6.10) 10^6/uL Hgb (14.0-18.0) g/dL Hct (42.0-52.0) % MCV (80.0-94.0) fL MCH (27.0-31.0) pg MCHC (32.0-36.0) g/dL RDW (12.0-15.0) % Plt Count (130-450) 10^3/uL MPV (7.4-11.4) fL Reticulocyte % (Auto) 2.16 (0.5-2.3) % Neut # (Auto) (1.5-6.6) 10^3/uL Lymph # (Auto) (1.5-3.5) 10^3/uL Gregory # (Auto) (0.0-1.0) 10^3/uL Eos # (Auto) (0.0-0.7) 10^3/uL Baso # (Auto) (0.0-0.1) 10^3/uL Absolute Nucleated RBC x10^3/uL Nucleated RBC % /100WBC Absolute Retic 0.058 (0.020-0.110) 10^6/uL PT 15.3 H (9.9-12.6) secs INR 1.4 H (0.8-1.2) Sodium (135-145) mmol/L Potassium (3.5-5.0) mmol/L Chloride (101-111) mmol/L Carbon Dioxide (21-32) mmol/L Anion Gap (6-13) BUN (6-20) mg/dL Creatinine (0.6-1.2) mg/dL Estimated GFR (MDRD) (>89) Glucose (70-100) mg/dL Glycated Hemoglobin (4.6-6.2) % Estim Average Glucose (70-100) Calcium (8.5-10.3) mg/dL Magnesium (1.7-2.8) mg/dL Total Bilirubin (0.2-1.0) mg/dL AST (10-42) IU/L ALT (10-60) IU/L Alkaline Phosphatase (42-121) IU/L Lactate Dehydrogenase 114 (91-225) IU/L Total Protein (6.7-8.2) g/dL Albumin (3.2-5.5) g/dL Globulin (2.1-4.2) g/dL Albumin/Globulin Ratio (1.0-2.2) TSH (0.34-5.60) uIU/mL 02/10/18 02/10/18 02/10/18 Range/Units 05:25 05:25 05:25 WBC (4.8-10.8) x10^3/uL RBC (4.70-6.10) 10^6/uL Hgb (14.0-18.0) g/dL Hct (42.0-52.0) % MCV (80.0-94.0) fL MCH (27.0-31.0) pg MCHC (32.0-36.0) g/dL RDW (12.0-15.0) % Plt Count (130-450) 10^3/uL MPV (7.4-11.4) fL Reticulocyte % (Auto) (0.5-2.3) % Neut # (Auto) (1.5-6.6) 10^3/uL Lymph # (Auto) (1.5-3.5) 10^3/uL Gregory # (Auto) (0.0-1.0) 10^3/uL Eos # (Auto) (0.0-0.7) 10^3/uL Baso # (Auto) (0.0-0.1) 10^3/uL Absolute Nucleated RBC x10^3/uL Nucleated RBC % /100WBC Absolute Retic (0.020-0.110) 10^6/uL PT 16.4 H (9.9-12.6) secs INR 1.5 H (0.8-1.2) Sodium 128 L (135-145) mmol/L Potassium 4.0 (3.5-5.0) mmol/L Chloride 98 L (101-111) mmol/L Carbon Dioxide 23 (21-32) mmol/L Anion Gap 7.0 (6-13) BUN 15 (6-20) mg/dL Creatinine 0.7 (0.6-1.2) mg/dL Estimated GFR (MDRD) 108 (>89) Glucose 218 H (70-100) mg/dL Glycated Hemoglobin (4.6-6.2) % Estim Average Glucose (70-100) Calcium 8.4 L (8.5-10.3) mg/dL Magnesium 1.7 (1.7-2.8) mg/dL Total Bilirubin 0.8 (0.2-1.0) mg/dL AST 20 (10-42) IU/L ALT 16 (10-60) IU/L Alkaline Phosphatase 51 (42-121) IU/L Lactate Dehydrogenase (91-225) IU/L Total Protein 5.8 L (6.7-8.2) g/dL Albumin 3.5 (3.2-5.5) g/dL Globulin 2.3 (2.1-4.2) g/dL Albumin/Globulin Ratio 1.5 (1.0-2.2) TSH 1.51 (0.34-5.60) uIU/mL 02/10/18 02/10/18 Range/Units 05:25 05:25 WBC 4.9 (4.8-10.8) x10^3/uL RBC 2.68 L (4.70-6.10) 10^6/uL Hgb 8.7 L (14.0-18.0) g/dL Hct 24.5 L (42.0-52.0) % MCV 91.3 (80.0-94.0) fL MCH 32.4 H (27.0-31.0) pg MCHC 35.5 (32.0-36.0) g/dL RDW 14.3 (12.0-15.0) % Plt Count 154 (130-450) 10^3/uL MPV 7.7 (7.4-11.4) fL Reticulocyte % (Auto) (0.5-2.3) % Neut # (Auto) 4.0 (1.5-6.6) 10^3/uL Lymph # (Auto) 0.4 L (1.5-3.5) 10^3/uL Gregory # (Auto) 0.4 (0.0-1.0) 10^3/uL Eos # (Auto) 0.0 (0.0-0.7) 10^3/uL Baso # (Auto) 0.0 (0.0-0.1) 10^3/uL Absolute Nucleated RBC 0.00 x10^3/uL Nucleated RBC % 0.0 /100WBC Absolute Retic (0.020-0.110) 10^6/uL PT (9.9-12.6) secs INR (0.8-1.2) Sodium (135-145) mmol/L Potassium (3.5-5.0) mmol/L Chloride (101-111) mmol/L Carbon Dioxide (21-32) mmol/L Anion Gap (6-13) BUN (6-20) mg/dL Creatinine (0.6-1.2) mg/dL Estimated GFR (MDRD) (>89) Glucose (70-100) mg/dL Glycated Hemoglobin 5.3 (4.6-6.2) % Estim Average Glucose 105 H (70-100) Calcium (8.5-10.3) mg/dL Magnesium (1.7-2.8) mg/dL Total Bilirubin (0.2-1.0) mg/dL AST (10-42) IU/L ALT (10-60) IU/L Alkaline Phosphatase (42-121) IU/L Lactate Dehydrogenase (91-225) IU/L Total Protein (6.7-8.2) g/dL Albumin (3.2-5.5) g/dL Globulin (2.1-4.2) g/dL Albumin/Globulin Ratio (1.0-2.2) TSH (0.34-5.60) uIU/mL - Other Results/Comments Other Results/Comments: Exam: No change Lab: INR = 1.5 Repeat INR (after one unit of FFP)= 1.4 Assessment/Plan - Problem List (1) Intertrochanteric fracture of right hip Impression: Stable PLAN: After discussion with anesthesia, we will proceed with OR as planned this AM. Will also begin hanging an additional unit of FFP now and have it infusing as we proceed with the surgical procedure. Qualifiers: Encounter type: initial encounter Fracture type: closed Fracture alignment: displaced Qualified Code(s): S72.141A - Displaced intertrochanteric fracture of right femur, initial encounter for closed fracture
[2018-02-10 08:26] LABS: FERRITIN 36.8 ng/mL (23.9-336.2)
[2018-02-10] MEDS ORDERED: LACTATED RINGERS 1,000 ML IV ONE (08:26)
[2018-02-10 08:49] LABS: % IRON SATURATION 17 % (20-50); IRON 45 ug/dL (45-182); TOTAL IRON BINDING CAPACITY 259 ug/dL (250-450); TRANSFERRIN 185 mg/dL (180-329)
[2018-02-10] MEDS ORDERED: ENOXAPARIN 40 MG/0.4 ML SYRINGE SUBQ SCH (09:00)
[2018-02-10] MEDS ORDERED: SODIUM CHLORIDE 0.9% 1,000 ML IV ONE (09:00)
[2018-02-10] MEDS ORDERED: BUPIVACAINE 0.25%-EPI 1:200000 PF 30 ML VIAL SUBQ ONE ×2 (10:11)
[2018-02-10] MEDS ORDERED: ACETAMINOPHEN 1,000 MG/100 ML 100 ML IV ONE (10:32)
[2018-02-10] MEDS ORDERED: PROPOFOL 200 MG/20 ML VIAL IVP ONE (10:32)
[2018-02-10] MEDS ORDERED: ePHEDrine 50 MG/ML VIAL IVP ONE (10:32)
[2018-02-10] MEDS ORDERED: fentaNYL 100 MCG/2 ML VIAL IVP ONE (10:32)
[2018-02-10] MEDS ORDERED: ONDANSETRON 4 MG/2 ML VIAL IVP ONE (10:32)
[2018-02-10] MEDS ORDERED: DOCUSATE SODIUM 100 MG CAPSULE PO PRN (10:37)
[2018-02-10] MEDS ORDERED: PROCHLORPERAZINE 10 MG/2 ML VIAL IVP PRN (10:37)
[2018-02-10] MEDS ORDERED: SENNA 8.6 MG TABLET PO PRN (10:37)
[2018-02-10] MEDS ORDERED: SODIUM CHLORIDE FLUSH 0.9% 10 ML SYRINGE IVP PRN (10:37)
[2018-02-10] MEDS ORDERED: ONDANSETRON 4 MG/2 ML VIAL IVP PRN (10:37)
[2018-02-10] MEDS ORDERED: ACETAMINOPHEN 1,000 MG/100 ML 100 ML IV PRN (10:37)
[2018-02-10] MEDS ORDERED: ACETAMINOPHEN 325 MG TABLET PO PRN (10:37)
--- NOTE | 2018-02-10 10:44 | OPERATIVE REPORT ---
Operative Report - General Admit Date: 02/09/18 Procedure Date: 02/10/18 Planned Procedure: Long interTan nailing of right hip fracture Pre-Op Diagnosis: Unstable right intertrochanteric hip fracture Procedure Performed: Closed reduction and long locked interTan nailing of right hip fracture Post Op Diagnosis: Same - Procedure Note Primary Surgeon: Naga Pulido MD Secondary Surgeon: None Anesthesia Provider: Nasir Tyson CRNA Anesthesia Technique: General ET tube IV Fluids (mL): 1,400 (one unit FFP + one UNIT PRBC's given in OR) Estimated Blood Loss (mL): 250 Complications: None
[2018-02-10] MEDS: MAGNESIUM OXIDE 400 MG TABLET PO SCH (12:02)
[2018-02-10] MEDS: FINASTERIDE 5 MG TABLET PO SCH (12:02)
[2018-02-10] MEDS: LISINOPRIL 5 MG TABLET PO SCH (12:02)
[2018-02-10] MEDS: INSULIN ASPART 300 UNIT/3 ML PEN SUBQ SCH ×3 (12:02→16:55)
[2018-02-10] MEDS: FERROUS SULFATE 325 MG TABLET PO SCH (12:02)
[2018-02-10] MEDS: FAMOTIDINE 20 MG TABLET PO SCH (12:02)
[2018-02-10] MEDS: SODIUM CHLORIDE FLUSH 0.9% 10 ML SYRINGE IVP SCH ×3 (12:03→23:39)
[2018-02-10] MEDS: POLYETHYLENE GLYCOL 3350 17 GM PACKET PO SCH (12:03)
[2018-02-10] MEDS: SODIUM CHLORIDE 0.9% 1,000 ML IV SCH (13:15)
--- NOTE | 2018-02-10 13:35 | PROVIDER PROGRESS NOTE ---
Subjective - Prog Note Date Prog Note Date: 02/10/18 - Subjective Pt reports feeling: Improved Subjective: pt is comfortably lying at bed after surgery. pt did not complain pain. No other complaints reported. Current Medications - Current Medications Current Medications: Active Medications Acetaminophen (Tylenol) 650 mg PO Q4HR PRN PRN Reason: Pain 1 to 4 Acetaminophen (Tylenol) 650 - 975 mg PO Q4HR PRN PRN Reason: PAIN Atorvastatin Calcium (Lipitor) 40 mg PO QPM [facility] Last Admin: 02/09/18 22:23 Dose: 40 mg Diphenhydramine HCl (Benadryl) 25 mg PO QPM PRN PRN Reason: Insomnia Docusate Sodium (Colace 100mg Capsule) 100 mg PO BID PRN PRN Reason: Constipation Doxazosin Mesylate (Cardura) 8 mg PO QPM [facility] Last Admin: 02/09/18 22:23 Dose: 8 mg Famotidine (Pepcid) 20 mg PO DAILY [facility] Last Admin: 02/10/18 12:02 Dose: 20 mg Ferrous Sulfate (Feosol) 325 mg PO DAILYWM [facility] Finasteride (Proscar) 5 mg PO DAILY [facility] Last Admin: 02/10/18 12:02 Dose: 5 mg Cefazolin Sodium/Dextrose (Ancef 2 Gm/50 Ml) 2 gm in 50 mls @ 100 mls/hr IV Q8H [facility] Stop: 02/11/18 01:29 Acetaminophen (Ofirmev) 100 mls @ 400 mls/hr IV Q6HR PRN PRN Reason: PAIN Sodium Chloride (Normal Saline 0.9%) 1,000 mls @ 75 mls/hr IV .[id number] [facility] Stop: 02/11/18 15:39 Last Admin: 02/10/18 13:15 Dose: 75 mls/hr Insulin Aspart (Novolog) 1 - 5 unit SUBQ 0800,1200,1700,2100 [facility] PRN Reason: Protocol Last Admin: 02/10/18 13:15 Dose: Not Given Levothyroxine Sodium (Synthroid) 50 mcg PO QDAC [facility] Last Admin: 02/10/18 12:02 Dose: 50 mcg Lisinopril (Zestril) 5 mg PO DAILY [facility] Last Admin: 02/10/18 12:02 Dose: 5 mg Magnesium Oxide (Mag Ox) 400 mg PO DAILYWM [facility] Last Admin: 02/10/18 12:02 Dose: 400 mg Morphine Sulfate (Morphine (Carpuject)) 2 mg IVP Q2HR PRN PRN Reason: Pain 8 to 10 Ondansetron HCl (Zofran Inj) 4 mg IVP Q6HR PRN PRN Reason: Nausea / Vomiting Oxycodone HCl (Roxicodone) 5 mg PO Q4HR PRN PRN Reason: Pain 5 to 7 Polyethylene Glycol (Miralax) 17 gm PO DAILY [facility] Last Admin: 02/10/18 12:03 Dose: Not Given Prochlorperazine Edisylate (Compazine Inj) 10 mg IVP Q6HR PRN PRN Reason: Nausea / Vomiting Senna (Senokot) 17.2 mg PO Q12H PRN PRN Reason: Constipation Sodium Chloride (Normal Saline Flush 0.9%) 10 ml IVP PRN PRN PRN Reason: NEEDED PER PROVIDER ORDERS Last Admin: 02/09/18 20:36 Dose: 10 ml Sodium Chloride (Normal Saline Flush 0.9%) 10 ml IVP 0100,0900,1700 [facility] Last Admin: 02/10/18 12:03 Dose: Not Given Warfarin Sodium (Coumadin) 5 mg PO QDWARFARIN [facility] Zolpidem Tartrate (Ambien) 5 mg PO QPM PRN PRN Reason: Insomnia Atorvastatin Calcium 40 mg PO 02/09/18 Doxazosin Mesylate [Cardura Xl] 8 mg PO 02/09/18 Ferrous Sulfate 325 mg PO 02/09/18 Finasteride [Proscar] 02/09/18 Levothyroxine Sodium 50 mcg PO 02/09/18 Lisinopril 5 mg PO 02/09/18 Sitagliptin Phosphate [Januvia] 25 mg PO 02/09/18 Warfarin Sodium [Coumadin] 2.5 mg PO DAILY 02/09/18 Warfarin [Coumadin] 5 mg PO 1400 02/09/18 metFORMIN [Glucophage] 500 mg PO BIDWM 02/09/18 Objective - Vital Signs/Intake & Output Reviewed Vital Signs: Yes Vital Signs: Vital Signs x48h Temp Pulse Pulse Resp BP BP Pulse Ox 02/10/18 13:07 36.5 C 67 14 111/47 L 94 02/10/18 12:04 36.5 C 68 14 114/56 L 94 02/10/18 11:43 36.9 C 69 14 125/50 L 94 02/10/18 11:33 37.0 C 78 14 126/59 L 93 02/10/18 11:20 37.0 C 78 14 126/59 L 93 02/10/18 11:10 16 130/59 L 95 02/10/18 11:05 14 141/94 H 95 02/10/18 11:00 36.6 C 16 135/67 H 95 02/10/18 10:55 17 145/57 H 95 02/10/18 10:50 16 154/59 H 98 02/10/18 10:45 18 137/67 H 100 02/10/18 10:37 36.8 C 16 154/67 H 100 02/10/18 07:31 36.8 C 79 14 134/79 H 02/10/18 07:29 14 99 02/10/18 07:21 37.3 C 78 16 129/63 Intake & Output: Intake & Output 02/07/18 02/08/18 02/09/18 02/10/18 23:59 23:59 23:59 23:59 Intake Total 700.5 1785 Output Total 150 520 Balance 550.5 1265 - Objective General Appearance: positive: No acute distress, Alert. negative: Lethargic Eyes Bilateral: positive: Normal inspection, PERRL, No lid inflammation, Conjunctivae nml ENT: positive: ENT inspection nml, Pharynx nml, No signs of dehydration. negative: Purulent nasal drainage, Pharyngeal erythema, Oral lesions Neck: positive: Nml inspection, Thyroid nml, No JVD, Trachea midline. negative : Thyromegaly, Lymphadenopathy (R), Lymphadenopathy (L), Stiff neck, Swelling/ bruising, Tracheal deviation Respiratory: positive: Chest non-tender, No respiratory distress, Breath sounds nml. negative: Wheezes, Rales, Rhonchi Cardiovascular: positive: Regular rate & rhythm, No murmur, No gallop. negative : Irregularly irregular, Extrasystoles, Tachycardia, Bradycardia, JVD present, Systolic murmur, Diastolic murmur Peripheral Pulses: 2+ Radial (R), 2+ Radial (L), 2+ Dorsalis pedis (R), 2+ Dorsalis pedis (L) Abdomen: positive: Non-tender, No organomegaly, Nml bowel sounds, No distention. negative: Tenderness, Guarding, Rebound Back: positive: Nml inspection. negative: CVA tenderness (R), CVA tenderness (L ) Skin: positive: Color nml, No rash, Warm, Dry. negative: Cyanosis, Diaphoresis , Pallor Extremities: positive: Nml appearance. negative: Calf tenderness, Joint swelling, Jeana's sign/cords Neurologic/Psychiatric: positive: Oriented x3, Sensation nml, Mood/affect nml. negative: Weakness, Sensory loss, Facial droop, Slurred/abnml speech, Depressed mood/affect - Lab Results Fish Bones: 02/10/18 05:25 02/10/18 05:25 Other Labs: Lab Results x24hrs 02/10/18 02/10/18 02/10/18 Range/Units 07:36 06:38 05:25 WBC (4.8-10.8) x10^3/uL RBC (4.70-6.10) 10^6/uL Hgb (14.0-18.0) g/dL Hct (42.0-52.0) % MCV (80.0-94.0) fL MCH (27.0-31.0) pg MCHC (32.0-36.0) g/dL RDW (12.0-15.0) % Plt Count (130-450) 10^3/uL MPV (7.4-11.4) fL Reticulocyte % (Auto) (0.5-2.3) % Neut # (Auto) (1.5-6.6) 10^3/uL Lymph # (Auto) (1.5-3.5) 10^3/uL [place] # (Auto) (0.0-1.0) 10^3/uL Eos # (Auto) (0.0-0.7) 10^3/uL Baso # (Auto) (0.0-0.1) 10^3/uL Absolute Nucleated RBC x10^3/uL Nucleated RBC % /100WBC Absolute Retic (0.020-0.110) 10^6/uL PT 15.3 H (9.9-12.6) secs INR 1.4 H (0.8-1.2) Sodium (135-145) mmol/L Potassium (3.5-5.0) mmol/L Chloride (101-111) mmol/L Carbon Dioxide (21-32) mmol/L Anion Gap (6-13) BUN (6-20) mg/dL Creatinine (0.6-1.2) mg/dL Estimated GFR (MDRD) (>89) Glucose (70-100) mg/dL Glycated Hemoglobin (4.6-6.2) % Estim Average Glucose (70-100) Calcium (8.5-10.3) mg/dL Magnesium (1.7-2.8) mg/dL Iron (45-182) ug/dL TIBC (250-450) ug/dL % Saturation (20-50) % Transferrin (180-329) mg/dL Ferritin (23.9-336.2) ng/mL Total Bilirubin (0.2-1.0) mg/dL AST (10-42) IU/L ALT (10-60) IU/L Alkaline Phosphatase (42-121) IU/L Lactate Dehydrogenase 114 (91-225) IU/L Total Protein (6.7-8.2) g/dL Albumin (3.2-5.5) g/dL Globulin (2.1-4.2) g/dL Albumin/Globulin Ratio (1.0-2.2) Vitamin B12 (180-914) pg/mL TSH (0.34-5.60) uIU/mL Blood Type O POSITIVE Blood Type Recheck 02/10/18 02/10/18 02/10/18 Range/Units 05:25 05:25 05:25 WBC (4.8-10.8) x10^3/uL RBC 2.69 L (4.70-6.10) 10^6/uL Hgb (14.0-18.0) g/dL Hct (42.0-52.0) % MCV (80.0-94.0) fL MCH (27.0-31.0) pg MCHC (32.0-36.0) g/dL RDW (12.0-15.0) % Plt Count (130-450) 10^3/uL MPV (7.4-11.4) fL Reticulocyte % (Auto) 2.16 (0.5-2.3) % Neut # (Auto) (1.5-6.6) 10^3/uL Lymph # (Auto) (1.5-3.5) 10^3/uL [place] # (Auto) (0.0-1.0) 10^3/uL Eos # (Auto) (0.0-0.7) 10^3/uL Baso # (Auto) (0.0-0.1) 10^3/uL Absolute Nucleated RBC x10^3/uL Nucleated RBC % /100WBC Absolute Retic 0.058 (0.020-0.110) 10^6/uL PT (9.9-12.6) secs INR (0.8-1.2) Sodium (135-145) mmol/L Potassium (3.5-5.0) mmol/L Chloride (101-111) mmol/L Carbon Dioxide (21-32) mmol/L Anion Gap (6-13) BUN (6-20) mg/dL Creatinine (0.6-1.2) mg/dL Estimated GFR (MDRD) (>89) Glucose (70-100) mg/dL Glycated Hemoglobin (4.6-6.2) % Estim Average Glucose (70-100) Calcium (8.5-10.3) mg/dL Magnesium (1.7-2.8) mg/dL Iron 45 (45-182) ug/dL TIBC 259 (250-450) ug/dL % Saturation 17 L (20-50) % Transferrin 185 (180-329) mg/dL Ferritin 36.8 (23.9-336.2) ng/mL Total Bilirubin (0.2-1.0) mg/dL AST (10-42) IU/L ALT (10-60) IU/L Alkaline Phosphatase (42-121) IU/L Lactate Dehydrogenase (91-225) IU/L Total Protein (6.7-8.2) g/dL Albumin (3.2-5.5) g/dL Globulin (2.1-4.2) g/dL Albumin/Globulin Ratio (1.0-2.2) Vitamin B12 425 (180-914) pg/mL TSH (0.34-5.60) uIU/mL Blood Type Blood Type Recheck 02/10/18 02/10/18 02/10/18 Range/Units 05:25 05:25 05:25 WBC (4.8-10.8) x10^3/uL RBC (4.70-6.10) 10^6/uL Hgb (14.0-18.0) g/dL Hct (42.0-52.0) % MCV (80.0-94.0) fL MCH (27.0-31.0) pg MCHC (32.0-36.0) g/dL RDW (12.0-15.0) % Plt Count (130-450) 10^3/uL MPV (7.4-11.4) fL Reticulocyte % (Auto) (0.5-2.3) % Neut # (Auto) (1.5-6.6) 10^3/uL Lymph # (Auto) (1.5-3.5) 10^3/uL [place] # (Auto) (0.0-1.0) 10^3/uL Eos # (Auto) (0.0-0.7) 10^3/uL Baso # (Auto) (0.0-0.1) 10^3/uL Absolute Nucleated RBC x10^3/uL Nucleated RBC % /100WBC Absolute Retic (0.020-0.110) 10^6/uL PT 16.4 H (9.9-12.6) secs INR 1.5 H (0.8-1.2) Sodium 128 L (135-145) mmol/L Potassium 4.0 (3.5-5.0) mmol/L Chloride 98 L (101-111) mmol/L Carbon Dioxide 23 (21-32) mmol/L Anion Gap 7.0 (6-13) BUN 15 (6-20) mg/dL Creatinine 0.7 (0.6-1.2) mg/dL Estimated GFR (MDRD) 108 (>89) Glucose 218 H (70-100) mg/dL Glycated Hemoglobin (4.6-6.2) % Estim Average Glucose (70-100) Calcium 8.4 L (8.5-10.3) mg/dL Magnesium 1.7 (1.7-2.8) mg/dL Iron (45-182) ug/dL TIBC (250-450) ug/dL % Saturation (20-50) % Transferrin (180-329) mg/dL Ferritin (23.9-336.2) ng/mL Total Bilirubin 0.8 (0.2-1.0) mg/dL AST 20 (10-42) IU/L ALT 16 (10-60) IU/L Alkaline Phosphatase 51 (42-121) IU/L Lactate Dehydrogenase (91-225) IU/L Total Protein 5.8 L (6.7-8.2) g/dL Albumin 3.5 (3.2-5.5) g/dL Globulin 2.3 (2.1-4.2) g/dL Albumin/Globulin Ratio 1.5 (1.0-2.2) Vitamin B12 (180-914) pg/mL TSH 1.51 (0.34-5.60) uIU/mL Blood Type Blood Type Recheck 02/10/18 02/10/18 02/10/18 Range/Units 05:25 05:25 05:15 WBC 4.9 (4.8-10.8) x10^3/uL RBC 2.68 L (4.70-6.10) 10^6/uL Hgb 8.7 L (14.0-18.0) g/dL Hct 24.5 L (42.0-52.0) % MCV 91.3 (80.0-94.0) fL MCH 32.4 H (27.0-31.0) pg MCHC 35.5 (32.0-36.0) g/dL RDW 14.3 (12.0-15.0) % Plt Count 154 (130-450) 10^3/uL MPV 7.7 (7.4-11.4) fL Reticulocyte % (Auto) (0.5-2.3) % Neut # (Auto) 4.0 (1.5-6.6) 10^3/uL Lymph # (Auto) 0.4 L (1.5-3.5) 10^3/uL [place] # (Auto) 0.4 (0.0-1.0) 10^3/uL Eos # (Auto) 0.0 (0.0-0.7) 10^3/uL Baso # (Auto) 0.0 (0.0-0.1) 10^3/uL Absolute Nucleated RBC 0.00 x10^3/uL Nucleated RBC % 0.0 /100WBC Absolute Retic (0.020-0.110) 10^6/uL PT (9.9-12.6) secs INR (0.8-1.2) Sodium (135-145) mmol/L Potassium (3.5-5.0) mmol/L Chloride (101-111) mmol/L Carbon Dioxide (21-32) mmol/L Anion Gap (6-13) BUN (6-20) mg/dL Creatinine (0.6-1.2) mg/dL Estimated GFR (MDRD) (>89) Glucose (70-100) mg/dL Glycated Hemoglobin 5.3 (4.6-6.2) % Estim Average Glucose 105 H (70-100) Calcium (8.5-10.3) mg/dL Magnesium (1.7-2.8) mg/dL Iron (45-182) ug/dL TIBC (250-450) ug/dL % Saturation (20-50) % Transferrin (180-329) mg/dL Ferritin (23.9-336.2) ng/mL Total Bilirubin (0.2-1.0) mg/dL AST (10-42) IU/L ALT (10-60) IU/L Alkaline Phosphatase (42-121) IU/L Lactate Dehydrogenase (91-225) IU/L Total Protein (6.7-8.2) g/dL Albumin (3.2-5.5) g/dL Globulin (2.1-4.2) g/dL Albumin/Globulin Ratio (1.0-2.2) Vitamin B12 (180-914) pg/mL TSH (0.34-5.60) uIU/mL Blood Type Blood Type Recheck O POSITIVE ABX Reporting Has patient been on IV antibiotics over the past 48 hours?: No Assessment/Plan - Problem List (1) Intertrochanteric fracture of right hip Impression: (1) Intertrochanteric fracture of right hip Conclusion/Plan: consult with orthopedics pain control 10 mg vitamin K IV to anti-coagulation Coumadin, not his INR is 2.0 NPO after midnight, IVF of NS Revised cardiac Risk index for pre-operative Risk is 0.9% Qualifiers: Encounter type: initial encounter Fracture type: closed Fracture alignment: displaced Qualified Code(s): S72.141A - Displaced intertrochanteric fracture of right femur, initial encounter for closed fracture (2) DM2 (diabetes mellitus, type 2) Conclusion/Plan: resume home DM meds, hold Metformin slide scale, ACHS check A1C hypoglycemia (3) Afib Conclusion/Plan: his HR is stable, hold Coumadin now PT/INR daily (4) HTN (hypertension) Conclusion/Plan: stable, will continue home meds vital monitor (5) BPH (benign prostatic hyperplasia) Conclusion/Plan: stable, will continue home meds (6) Hyperlipidemia Conclusion/Plan: stable, will continue home meds (7) hyponatremia today Na is 128, down from yesterday 134 it appears hypovolume hyponatremia continue IVF 75CC daily lab monitor (8) anemia H&H, will transfusion of blood as needed anemia study does not indicate significant iron deficiency. it may be caused by acute blood loss Qualifiers: Encounter type: initial encounter Fracture type: closed Fracture alignment: displaced Qualified Code(s): S72.141A - Displaced intertrochanteric fracture of right femur, initial encounter for closed fracture
--- NOTE | 2018-02-10 13:58 | XRAY Report ---
Reason: FRACTURE RT HIP Procedure Date: 02/10/2018 Accession Number: [id number] / [id number] Procedure: [place] - OR C-Arm Procedure CPT Code: FULL RESULT: EXAM: FLUOROSCOPIC GUIDANCE EXAM DATE: 02/10/2018 10:36 AM. CLINICAL HISTORY: Fracture of the right hip COMPARISON: None. FINDINGS: No images are presented for evaluation. 1 minute 3 seconds fluoroscopy time was utilized. IMPRESSION: Fluoroscopic guidance for surgery. RADIA
[2018-02-10] MEDS: WARFARIN 5 MG TABLET PO SCH (14:19)
--- NOTE | 2018-02-10 14:56 | XRAY Report ---
Reason: right hip repair Procedure Date: 02/10/2018 Accession Number: [id number] / [id number] Procedure: XR - Hip w/Pelvis 2-3V RT CPT Code: FULL RESULT: EXAM: RIGHT FEMUR RADIOGRAPHY LIMITED EXAM DATE: 02/10/2018 10:37 AM. HISTORY: Right hip repair. COMPARISONS: 02/09/2018 radiograph. TECHNIQUE: Four intraoperative fluoroscopic images of the right femur proximally and distally. These are in two views but did not include the middle portion of the femur. FINDINGS: Bones: Images demonstrate placement of a dynamic hip screw in the proximal right femur with a long femoral stem. The patient has a knee arthroplasty. The fracture of the proximal right femur is now aligned. IMPRESSION: Images demonstrate surgical fixation of the right femoral fracture. RADIA
[2018-02-10] MEDS: ceFAZolin 2 GM/50 ML 2 GM/50 ML BAG IV SCH (16:54)
[2018-02-10] MEDS ORDERED: SODIUM CHLORIDE FLUSH 0.9% 10 ML SYRINGE IVP SCH (17:00)
[2018-02-10 18:58] LABS: HGB - HEMOGLOBIN 7.8 g/dL (14.0-18.0)
[2018-02-10] MEDS: DOXAZOSIN 4 MG TABLET PO SCH (20:13)
[2018-02-10] MEDS: ATORVASTATIN 40 MG TABLET PO SCH (20:13)
[2018-02-10] MEDS ORDERED: INSULIN ASPART 300 UNIT/3 ML PEN SUBQ SCH (21:00)
[2018-02-10] MEDS: ZOLPIDEM 5 MG TABLET PO PRN (23:53)
[2018-02-10] MEDS: SODIUM CHLORIDE FLUSH 0.9% 10 ML SYRINGE IVP PRN (23:57)
[2018-02-11] MEDS: ceFAZolin 2 GM/50 ML 2 GM/50 ML BAG IV SCH (00:47)
[2018-02-11] MEDS: SODIUM CHLORIDE 0.9% 1,000 ML IV SCH ×3 (02:46→17:23)
[2018-02-11] MEDS: oxyCODONE 5 MG TABLET PO PRN ×4 (05:21→21:11)
[2018-02-11 05:57] LABS: BASOPHILS % (AUTO) 0.6 %; EOSINOPHILS % (AUTO) 0.5 %; HGB - HEMOGLOBIN 7.2 g/dL (14.0-18.0); LYMPHOCYTES # (AUTO) 0.4 10^3/uL (1.5-3.5); LYMPHOCYTES % (AUTO) 11.8 %; MEAN CORPUSCULAR HEMOGLOBIN 32.1 pg (27.0-31.0); MEAN CORPUSCULAR HGB CONC 35.3 g/dL (32.0-36.0); MEAN CORPUSCULAR VOLUME 90.8 fL (80.0-94.0); MEAN PLATELET VOLUME 7.8 fL (7.4-11.4); MONOCYTES # (AUTO) 0.5 10^3/uL (0.0-1.0); MONOCYTES % (AUTO) 13.8 %; NEUTROPHILS # (AUTO) 2.7 10^3/uL (1.5-6.6); NEUTROPHILS % (AUTO) 73.3 %; PLT - PLATELET COUNT 119 10^3/uL (130-450); RED BLOOD COUNT 2.26 10^6/uL (4.70-6.10); RED CELL DISTRIBUTION WIDTH 14.4 % (12.0-15.0); WHITE BLOOD COUNT 3.7 x10^3/uL (4.8-10.8)
[2018-02-11 05:59] LABS: INR 1.2 (0.8-1.2); PT - PROTHROMBIN TIME 13.5 secs (9.9-12.6)
[2018-02-11] MEDS: LEVOTHYROXINE 25 MCG TABLET PO SCH (06:05)
[2018-02-11 06:09] LABS: ALBUMIN 3.1 g/dL (3.2-5.5); ALBUMIN/GLOBULIN RATIO 1.3 (1.0-2.2); BILIRUBIN,TOTAL 0.6 mg/dL (0.2-1.0); CREATININE 0.7 mg/dL (0.6-1.2); TOTAL PROTEIN 5.4 g/dL (6.7-8.2)
[2018-02-11] MEDS ORDERED: cloNIDine 0.1 MG TABLET PO PRN (07:23)
--- NOTE | 2018-02-11 08:53 | PROVIDER PROGRESS NOTE ---
Subjective - Prog Note Date Prog Note Date: 02/11/18 Prog Note Time: 08:51 - Subjective Pt reports feeling: Improved Objective - Vital Signs/Intake & Output Vital Signs: Vital Signs x48h Temp Pulse Resp BP Pulse Ox 02/11/18 02:56 36.9 C 76 18 188/55 H 95 Intake & Output: Intake & Output 02/08/18 02/09/18 02/10/18 02/11/18 23:59 23:59 23:59 23:59 Intake Total 700.5 3474.75 747.5 Output Total 150 2145 775 Balance 550.5 1329.75 -27.5 - Lab Results Fish Bones: 02/11/18 05:16 02/11/18 05:16 Other Labs: Lab Results x24hrs 02/11/18 02/11/18 02/11/18 Range/Units 05:16 05:16 05:16 WBC 3.7 L (4.8-10.8) x10^3/uL RBC 2.26 L (4.70-6.10) 10^6/uL Hgb 7.2 L (14.0-18.0) g/dL Hct 20.5 L (42.0-52.0) % MCV 90.8 (80.0-94.0) fL MCH 32.1 H (27.0-31.0) pg MCHC 35.3 (32.0-36.0) g/dL RDW 14.4 (12.0-15.0) % Plt Count 119 L (130-450) 10^3/uL MPV 7.8 (7.4-11.4) fL Neut # (Auto) 2.7 (1.5-6.6) 10^3/uL Lymph # (Auto) 0.4 L (1.5-3.5) 10^3/uL [place] # (Auto) 0.5 (0.0-1.0) 10^3/uL Eos # (Auto) 0.0 (0.0-0.7) 10^3/uL Baso # (Auto) 0.0 (0.0-0.1) 10^3/uL Absolute Nucleated RBC 0.02 x10^3/uL Nucleated RBC % 0.4 /100WBC PT 13.5 H (9.9-12.6) secs INR 1.2 (0.8-1.2) Sodium 130 L (135-145) mmol/L Potassium 3.9 (3.5-5.0) mmol/L Chloride 100 L (101-111) mmol/L Carbon Dioxide 24 (21-32) mmol/L Anion Gap 6.0 (6-13) BUN 13 (6-20) mg/dL Creatinine 0.7 (0.6-1.2) mg/dL Estimated GFR (MDRD) 108 (>89) Glucose 218 H (70-100) mg/dL Calcium 8.0 L (8.5-10.3) mg/dL Total Bilirubin 0.6 (0.2-1.0) mg/dL AST 20 (10-42) IU/L ALT 14 (10-60) IU/L Alkaline Phosphatase 47 (42-121) IU/L Total Protein 5.4 L (6.7-8.2) g/dL Albumin 3.1 L (3.2-5.5) g/dL Globulin 2.3 (2.1-4.2) g/dL Albumin/Globulin Ratio 1.3 (1.0-2.2) Blood Type Blood Type Recheck 02/10/18 02/10/18 02/10/18 Range/Units 18:54 06:38 05:15 WBC (4.8-10.8) x10^3/uL RBC (4.70-6.10) 10^6/uL Hgb 7.8 L (14.0-18.0) g/dL Hct 22.5 L (42.0-52.0) % MCV (80.0-94.0) fL MCH (27.0-31.0) pg MCHC (32.0-36.0) g/dL RDW (12.0-15.0) % Plt Count (130-450) 10^3/uL MPV (7.4-11.4) fL Neut # (Auto) (1.5-6.6) 10^3/uL Lymph # (Auto) (1.5-3.5) 10^3/uL [place] # (Auto) (0.0-1.0) 10^3/uL Eos # (Auto) (0.0-0.7) 10^3/uL Baso # (Auto) (0.0-0.1) 10^3/uL Absolute Nucleated RBC x10^3/uL Nucleated RBC % /100WBC PT (9.9-12.6) secs INR (0.8-1.2) Sodium (135-145) mmol/L Potassium (3.5-5.0) mmol/L Chloride (101-111) mmol/L Carbon Dioxide (21-32) mmol/L Anion Gap (6-13) BUN (6-20) mg/dL Creatinine (0.6-1.2) mg/dL Estimated GFR (MDRD) (>89) Glucose (70-100) mg/dL Calcium (8.5-10.3) mg/dL Total Bilirubin (0.2-1.0) mg/dL AST (10-42) IU/L ALT (10-60) IU/L Alkaline Phosphatase (42-121) IU/L Total Protein (6.7-8.2) g/dL Albumin (3.2-5.5) g/dL Globulin (2.1-4.2) g/dL Albumin/Globulin Ratio (1.0-2.2) Blood Type O POSITIVE Blood Type Recheck O POSITIVE - Other Results/Comments Other Results/Comments: EXAM: Dressings intact. Mild pain with hip rotation. Moves toes well. Sensation intact. Good cap filling. Assessment/Plan - Problem List (1) Intertrochanteric fracture of right hip Impression: Satis post op PLAN: Transfuse a unit of PRBC's and repeat H/H in AM. Mobilize as tolerated. Qualifiers: Encounter type: initial encounter Fracture type: closed Fracture alignment: displaced Qualified Code(s): S72.141A - Displaced intertrochanteric fracture of right femur, initial encounter for closed fracture
[2018-02-11] MEDS ORDERED: MAGNESIUM HYDROXIDE 2,400 MG/30 ML UDC PO ONE (09:00)
[2018-02-11] MEDS: MAGNESIUM OXIDE 400 MG TABLET PO SCH (09:15)
[2018-02-11] MEDS: FERROUS SULFATE 325 MG TABLET PO SCH (09:15)
[2018-02-11] MEDS: FINASTERIDE 5 MG TABLET PO SCH (09:15)
[2018-02-11] MEDS: FAMOTIDINE 20 MG TABLET PO SCH (09:15)
[2018-02-11] MEDS: LISINOPRIL 5 MG TABLET PO SCH (09:15)
[2018-02-11] MEDS: POLYETHYLENE GLYCOL 3350 17 GM PACKET PO SCH (09:16)
[2018-02-11] MEDS: SODIUM CHLORIDE FLUSH 0.9% 10 ML SYRINGE IVP SCH ×2 (09:18→17:23)
[2018-02-11] MEDS: ACETAMINOPHEN 325 MG TABLET PO PRN (09:19)
[2018-02-11] MEDS: INSULIN ASPART 300 UNIT/3 ML PEN SUBQ SCH ×4 (09:20→21:13)
[2018-02-11] MEDS ORDERED: SODIUM CHLORIDE 0.9% 500 ML IV ONE ×2 (10:15→13:18)
[2018-02-11] MEDS: ASPIRIN 325 MG TABLET PO SCH (10:21)
[2018-02-11 10:39] LABS: BASOPHILS % (AUTO) 0.5 %; EOSINOPHILS % (AUTO) 0.6 %; HGB - HEMOGLOBIN 7.1 g/dL (14.0-18.0); LYMPHOCYTES # (AUTO) 0.7 10^3/uL (1.5-3.5); LYMPHOCYTES % (AUTO) 16.3 %; MEAN CORPUSCULAR HEMOGLOBIN 31.6 pg (27.0-31.0); MEAN CORPUSCULAR HGB CONC 34.8 g/dL (32.0-36.0); MEAN CORPUSCULAR VOLUME 90.9 fL (80.0-94.0); MEAN PLATELET VOLUME 7.3 fL (7.4-11.4); MONOCYTES # (AUTO) 0.6 10^3/uL (0.0-1.0); MONOCYTES % (AUTO) 14.2 %; NEUTROPHILS # (AUTO) 2.9 10^3/uL (1.5-6.6); NEUTROPHILS % (AUTO) 68.4 %; PLT - PLATELET COUNT 103 10^3/uL (130-450); RED BLOOD COUNT 2.24 10^6/uL (4.70-6.10); RED CELL DISTRIBUTION WIDTH 14.6 % (12.0-15.0); WHITE BLOOD COUNT 4.2 x10^3/uL (4.8-10.8)
[2018-02-11 11:00] LABS: ALBUMIN 3.1 g/dL (3.2-5.5); ALBUMIN/GLOBULIN RATIO 1.4 (1.0-2.2); BILIRUBIN,TOTAL 0.9 mg/dL (0.2-1.0); CALCIUM 7.9 mg/dL (8.5-10.3); CREATININE 0.7 mg/dL (0.6-1.2); TOTAL PROTEIN 5.3 g/dL (6.7-8.2)
--- NOTE | 2018-02-11 12:41 | XRAY Report ---
Reason: hypotension/SOB Procedure Date: 02/11/2018 Accession Number: [id number] / [id number] Procedure: XR - Chest 1 View X-Ray CPT Code: 59234 FULL RESULT: EXAM: CHEST RADIOGRAPHY EXAM DATE: 02/11/2018 12:11 PM. CLINICAL HISTORY: Hypotension/shortness of breath. COMPARISON: CHEST 1 VIEW 02/09/2018. TECHNIQUE: 1 view. FINDINGS: Lungs/Pleura: There is similar appearance of right apical scarring and bronchiectasis. There is increased streaky mild subsegmental atelectasis at the left lung base. There is mild elevation of the left hemidiaphragm, new compared to prior. No pleural effusion. No pneumothorax. Mediastinum: Within exam limitations, the cardiomediastinal contour is normal. There is mild atherosclerotic calcification of the aortic arch. Other: No acute osseous abnormality. IMPRESSION: Similar appearance of right apical scarring and bronchiectasis. There is mild elevation of the left hemidiaphragm and increased subsegmental atelectasis at the left lung base. RADIA
--- NOTE | 2018-02-11 13:21 | PROVIDER PROGRESS NOTE ---
Hospitalist Cross-cover Note - Cross-Cover Note Cross-Cover Note: Pt's HGB was 7.2 at j2ee engineer. I discussed with pt, pt decline blood transfusion. pt also request discontinue of his Domínguez
--- NOTE | 2018-02-11 14:09 | PROVIDER PROGRESS NOTE ---
Subjective - Prog Note Date Prog Note Date: 02/11/18 Prog Note Time: 11:07 - Subjective Subjective: I was asked to see the patient this morning for an acute event. At approximately 10:15 he became suddenly diaphoretic, pale, and hypotensive to 60 systolic. vehicle monitor technician showed a tachycardia. Stat EKG showed wide complex tachycardia. I was able to elicit a history from his the patient has had a tachyarrhythmia in the past that required cardioversion. She felt that he had done this before. He is postop day 1 for a total hip replacement. He was still alert enough to answer my questions. He denied chest pain. Was having horrific palpitations and sweats. Was also starting to get slightly nauseated. Blood pressure was 67/52, and pulse rate was close to 200 on the monitor. Patient was placed in Trendelenburg. Stat EKG, stat troponin was done. Troponins were negative. Crash cart telemetry leads were placed on his chest wall. Confirming the wide-complex tachycardia. Adenosine 6 mg was ordered. Within 40 seconds his heart rate went from atrial fibrillation in the 60s back up to the wide-complex tachycardia in the 190s. 12 mg of adenosine was done. With this the patient slow down to atrial fibrillation and then conversion to sinus rhythm. Troponin is less than 0.04. Sodium this morning was 130 and after the event 129. Random glucose is 281. Hemoglobin was 7.2 this morning and he declined transfusion. A 7.1 now with this event. Platelets are low at 103. Patient is now transferred to ICU for telemetry monitoring and one-to-one observation by nursing. Current Medications - Current Medications Current Medications: Active Medications Acetaminophen (Tylenol) 650 mg PO Q4HR PRN PRN Reason: Pain 1 to 4 Last Admin: 02/11/18 09:19 Dose: 650 mg Acetaminophen (Tylenol) 650 - 975 mg PO Q4HR PRN PRN Reason: PAIN Aspirin (Courtney) 325 mg PO DAILYWM [facility] Last Admin: 02/11/18 10:21 Dose: 325 mg Atorvastatin Calcium (Lipitor) 40 mg PO QPM [facility] Last Admin: 02/10/18 20:13 Dose: 40 mg Diphenhydramine HCl (Benadryl) 25 mg PO QPM PRN PRN Reason: Insomnia Docusate Sodium (Colace 100mg Capsule) 100 mg PO BID PRN PRN Reason: Constipation Famotidine (Pepcid) 20 mg PO DAILY [facility] Last Admin: 02/11/18 09:15 Dose: 20 mg Ferrous Sulfate (Feosol) 325 mg PO DAILYWM [facility] Last Admin: 02/11/18 09:15 Dose: 325 mg Acetaminophen (Ofirmev) 100 mls @ 400 mls/hr IV Q6HR PRN PRN Reason: PAIN Insulin Aspart (Novolog) 2 - 10 unit SUBQ 0800,1200,1700,2100 [facility] PRN Reason: Protocol Last Admin: 02/11/18 12:32 Dose: 8 unit Levothyroxine Sodium (Synthroid) 50 mcg PO QDAC [facility] Last Admin: 02/11/18 06:05 Dose: 50 mcg Magnesium Oxide (Mag Ox) [facility] [place] Last Admin: 02/11/18 09:15 Dose: 400 mg Morphine Sulfate (Morphine (Carpuject)) 2 mg IVP Q2HR PRN PRN Reason: Pain 8 to 10 Ondansetron HCl (Zofran Inj) 4 mg IVP Q6HR PRN PRN Reason: Nausea / Vomiting Oxycodone HCl (Roxicodone) 5 mg PO Q4HR PRN PRN Reason: Pain 5 to 7 Last Admin: 02/11/18 09:18 Dose: 5 mg Polyethylene Glycol (Miralax) 17 gm PO DAILY [facility] Last Admin: 02/11/18 09:16 Dose: 17 gm Prochlorperazine Edisylate (Compazine Inj) 10 mg IVP Q6HR PRN PRN Reason: Nausea / Vomiting Senna (Senokot) 17.2 mg PO Q12H PRN PRN Reason: Constipation Sodium Chloride (Normal Saline Flush 0.9%) 10 ml IVP PRN PRN PRN Reason: NEEDED PER PROVIDER ORDERS Last Admin: 02/10/18 23:57 Dose: 10 ml Sodium Chloride (Normal Saline Flush 0.9%) 10 ml IVP 0100,0900,1700 [facility] Last Admin: 02/11/18 09:18 Dose: 10 ml Warfarin Sodium (Coumadin) 5 mg PO QDWARFARIN [facility] Last Admin: 02/10/18 14:19 Dose: 5 mg Zolpidem Tartrate (Ambien) 5 mg PO QPM PRN PRN Reason: Insomnia Last Admin: 02/10/18 23:53 Dose: 5 mg Atorvastatin Calcium 40 mg PO QPM 02/09/18 Doxazosin Mesylate [Cardura Xl] 8 mg PO QPM 02/09/18 Ferrous Sulfate 325 mg PO BID 02/09/18 Finasteride [Proscar] 5 mg PO DAILY 02/09/18 Levothyroxine Sodium 50 mcg PO DAILY 02/09/18 Lisinopril 5 mg PO DAILY 02/09/18 Sitagliptin Phosphate [Januvia] 25 mg PO DAILY 02/09/18 Warfarin Sodium [Coumadin] 2.5 mg PO SUTUTHSA 02/09/18 Warfarin [Coumadin] 5 mg PO MOWEFR 02/09/18 metFORMIN [Glucophage] 500 mg PO BIDWM 02/09/18 Acetaminophen/Diphenhydramine [Tylenol Pm Ex-Strength Caplet] 1 each PO QPM 02/19 Objective - Vital Signs/Intake & Output Reviewed Vital Signs: Yes Vital Signs: Vital Signs Temp Pulse Resp BP Pulse Ox 02/11/18 13:00 19 02/11/18 12:30 36.7 C 83 19 111/60 97 02/11/18 12:00 86 115/73 02/11/18 11:45 83 104/58 L 02/11/18 11:30 87 87/43 L 02/11/18 11:15 83 105/58 L 02/11/18 11:00 83 100/60 02/11/18 10:39 78 102/50 L 02/11/18 10:25 193 H 70/46 L 02/11/18 10:20 190 H 02/11/18 10:15 95 16 78/59 L 94 02/11/18 10:10 67/52 L Intake & Output: Intake & Output 02/08/18 02/09/18 02/10/18 02/11/18 23:59 23:59 23:59 23:59 Intake Total 700.5 3474.75 3883.75 Output Total 150 2145 775 Balance 550.5 1329.75 3108.75 - Objective General Appearance: positive: Other (Tall white male, elderly, looks stated age , severe diaphoresis during the episode that has resolved once sinus rhythm returned. He is oriented to person, place, but is starting to get confused.) Eyes Bilateral: positive: PERRL ENT: positive: Pharynx nml Neck: positive: No JVD. negative: Stiff neck, Carotid bruit Respiratory: positive: Chest non-tender. negative: Wheezes, Rales, Rhonchi Cardiovascular: positive: Regular rate & rhythm. negative: Gallop/S4, Friction rub Abdomen: positive: Non-tender, No organomegaly, Nml bowel sounds, No distention Skin: positive: Warm, Diaphoresis, Pallor Extremities: positive: No pedal edema Neurologic/Psychiatric: positive: CN's nml (2-12), Motor nml, Disoriented to time - Lab Results Fish Bones: 02/11/18 10:35 02/11/18 10:25 Other Labs: Lab Results x24hrs 02/11/18 02/11/18 02/11/18 Range/Units 10:45 10:35 10:25 WBC 4.2 L (4.8-10.8) x10^3/uL RBC 2.24 L (4.70-6.10) 10^6/uL Hgb 7.1 L (14.0-18.0) g/dL Hct 20.4 L (42.0-52.0) % MCV 90.9 (80.0-94.0) fL MCH 31.6 H (27.0-31.0) pg MCHC 34.8 (32.0-36.0) g/dL RDW 14.6 (12.0-15.0) % Plt Count 103 L (130-450) 10^3/uL MPV 7.3 L (7.4-11.4) fL Neut # (Auto) 2.9 (1.5-6.6) 10^3/uL Lymph # (Auto) 0.7 L (1.5-3.5) 10^3/uL [place] # (Auto) 0.6 (0.0-1.0) 10^3/uL Eos # (Auto) 0.0 (0.0-0.7) 10^3/uL Baso # (Auto) 0.0 (0.0-0.1) 10^3/uL Absolute Nucleated RBC 0.01 x10^3/uL Nucleated RBC % 0.2 /100WBC PT (9.9-12.6) secs INR (0.8-1.2) D-Dimer 889.4 H (200.0-255.0) ng/mL Sodium 129 L (135-145) mmol/L Potassium 4.1 (3.5-5.0) mmol/L Chloride 100 L (101-111) mmol/L Carbon Dioxide 22 (21-32) mmol/L Anion Gap 7.0 (6-13) BUN 13 (6-20) mg/dL Creatinine 0.7 (0.6-1.2) mg/dL Estimated GFR (MDRD) 108 (>89) Glucose 281 H (70-100) mg/dL Calcium 7.9 L (8.5-10.3) mg/dL Total Bilirubin 0.9 (0.2-1.0) mg/dL AST 22 (10-42) IU/L ALT 14 (10-60) IU/L Alkaline Phosphatase 48 (42-121) IU/L Troponin I (<0.49) ng/mL Total Protein 5.3 L (6.7-8.2) g/dL Albumin 3.1 L (3.2-5.5) g/dL Globulin 2.2 (2.1-4.2) g/dL Albumin/Globulin Ratio 1.4 (1.0-2.2) Blood Type 02/11/18 02/11/18 02/11/18 Range/Units 10:25 05:16 05:16 WBC (4.8-10.8) x10^3/uL RBC (4.70-6.10) 10^6/uL Hgb (14.0-18.0) g/dL Hct (42.0-52.0) % MCV (80.0-94.0) fL MCH (27.0-31.0) pg MCHC (32.0-36.0) g/dL RDW (12.0-15.0) % Plt Count (130-450) 10^3/uL MPV (7.4-11.4) fL Neut # (Auto) (1.5-6.6) 10^3/uL Lymph # (Auto) (1.5-3.5) 10^3/uL [place] # (Auto) (0.0-1.0) 10^3/uL Eos # (Auto) (0.0-0.7) 10^3/uL Baso # (Auto) (0.0-0.1) 10^3/uL Absolute Nucleated RBC x10^3/uL Nucleated RBC % /100WBC PT 13.5 H (9.9-12.6) secs INR 1.2 (0.8-1.2) D-Dimer (200.0-255.0) ng/mL Sodium 130 L (135-145) mmol/L Potassium 3.9 (3.5-5.0) mmol/L Chloride 100 L (101-111) mmol/L Carbon Dioxide 24 (21-32) mmol/L Anion Gap 6.0 (6-13) BUN 13 (6-20) mg/dL Creatinine 0.7 (0.6-1.2) mg/dL Estimated GFR (MDRD) 108 (>89) Glucose 218 H (70-100) mg/dL Calcium 8.0 L (8.5-10.3) mg/dL Total Bilirubin 0.6 (0.2-1.0) mg/dL AST 20 (10-42) IU/L ALT 14 (10-60) IU/L Alkaline Phosphatase 47 (42-121) IU/L Troponin I < 0.04 (<0.49) ng/mL Total Protein 5.4 L (6.7-8.2) g/dL Albumin 3.1 L (3.2-5.5) g/dL Globulin 2.3 (2.1-4.2) g/dL Albumin/Globulin Ratio 1.3 (1.0-2.2) Blood Type 02/11/18 02/10/18 02/10/18 Range/Units 05:16 18:54 06:38 WBC 3.7 L (4.8-10.8) x10^3/uL RBC 2.26 L (4.70-6.10) 10^6/uL Hgb 7.2 L 7.8 L (14.0-18.0) g/dL Hct 20.5 L 22.5 L (42.0-52.0) % MCV 90.8 (80.0-94.0) fL MCH 32.1 H (27.0-31.0) pg MCHC 35.3 (32.0-36.0) g/dL RDW 14.4 (12.0-15.0) % Plt Count 119 L (130-450) 10^3/uL MPV 7.8 (7.4-11.4) fL Neut # (Auto) 2.7 (1.5-6.6) 10^3/uL Lymph # (Auto) 0.4 L (1.5-3.5) 10^3/uL [place] # (Auto) 0.5 (0.0-1.0) 10^3/uL Eos # (Auto) 0.0 (0.0-0.7) 10^3/uL Baso # (Auto) 0.0 (0.0-0.1) 10^3/uL Absolute Nucleated RBC 0.02 x10^3/uL Nucleated RBC % 0.4 /100WBC PT (9.9-12.6) secs INR (0.8-1.2) D-Dimer (200.0-255.0) ng/mL Sodium (135-145) mmol/L Potassium (3.5-5.0) mmol/L Chloride (101-111) mmol/L Carbon Dioxide (21-32) mmol/L Anion Gap (6-13) BUN (6-20) mg/dL Creatinine (0.6-1.2) mg/dL Estimated GFR (MDRD) (>89) Glucose (70-100) mg/dL Calcium (8.5-10.3) mg/dL Total Bilirubin (0.2-1.0) mg/dL AST (10-42) IU/L ALT (10-60) IU/L Alkaline Phosphatase (42-121) IU/L Troponin I (<0.49) ng/mL Total Protein (6.7-8.2) g/dL Albumin (3.2-5.5) g/dL Globulin (2.1-4.2) g/dL Albumin/Globulin Ratio (1.0-2.2) Blood Type Cancelled Assessment/Plan - Problem List (1) SVT (supraventricular tachycardia) Impression: s/p treatment with adenosine. transfer to ICU tele monitoriing check troponins in 6 hours treat hypotension. most of it has resolved but will continue to closely monitor 35 minutes spent in direct patient care at the bedside (2) Intertrochanteric fracture of right hip Impression: POD #1 To start limited PT today. He really wants to go home. If he's able to demonstrate that he is safe for home, may be able to get home health w PT. Qualifiers: Encounter type: initial encounter Fracture type: closed Fracture alignment: displaced Qualified Code(s): S72.141A - Displaced intertrochanteric fracture of right femur, initial encounter for closed fracture (3) HTN (hypertension) Impression: Cardura and Lisinopril being held for now. (4) DM2 (diabetes mellitus, type 2) Impression: not controlled with hyperglycemia. 294 an 297 the last 2 checks. on metformin at home. here he is on SS novolog. Will give Lantus 5 units for tonight. Goal is <200 on his glucose. Qualifiers: Diabetes mellitus buttermaker continuous churn insulin use: without buttermaker continuous churn use Diabetes mellitus complication status: with hyperglycemia Qualified Code(s): E11.65 - Type 2 diabetes mellitus with hyperglycemia (5) Acute blood loss anemia Impression: Dr. Pulido asked for 1 unit of blood to be transfused. The patient declined. Now that he has had this event, and he has low BP, willing to do it.
[2018-02-11] MEDS ORDERED: INSULIN GLARGINE 300 UNIT/3 ML PEN SUBQ SCH (15:00)
[2018-02-11] MEDS: WARFARIN 5 MG TABLET PO SCH (15:03)
[2018-02-11] MEDS: ZOLPIDEM 5 MG TABLET PO PRN (21:12)
[2018-02-11] MEDS: ATORVASTATIN 40 MG TABLET PO SCH (21:12)
[2018-02-11] MEDS: INSULIN GLARGINE 300 UNIT/3 ML PEN SUBQ SCH (21:12)
[2018-02-12] MEDS: SODIUM CHLORIDE FLUSH 0.9% 10 ML SYRINGE IVP SCH ×4 (03:50→23:55)
[2018-02-12 04:59] LABS: ALBUMIN 2.9 g/dL (3.2-5.5); ALBUMIN/GLOBULIN RATIO 1.2 (1.0-2.2); CALCIUM 8.1 mg/dL (8.5-10.3); CREATININE 0.5 mg/dL (0.6-1.2); TOTAL PROTEIN 5.3 g/dL (6.7-8.2)
[2018-02-12 05:04] LABS: INR 1.4 (0.8-1.2); PT - PROTHROMBIN TIME 16.1 secs (9.9-12.6)
[2018-02-12 05:09] LABS: BASOPHILS % (AUTO) 0.6 %; EOSINOPHILS # (AUTO) 0.1 10^3/uL (0.0-0.7); EOSINOPHILS % (AUTO) 1.7 %; HGB - HEMOGLOBIN 8.8 g/dL (14.0-18.0); LYMPHOCYTES # (AUTO) 0.4 10^3/uL (1.5-3.5); LYMPHOCYTES % (AUTO) 8.6 %; MEAN CORPUSCULAR HEMOGLOBIN 31.4 pg (27.0-31.0); MEAN CORPUSCULAR HGB CONC 35.4 g/dL (32.0-36.0); MEAN CORPUSCULAR VOLUME 88.7 fL (80.0-94.0); MEAN PLATELET VOLUME 7.4 fL (7.4-11.4); MONOCYTES # (AUTO) 0.5 10^3/uL (0.0-1.0); MONOCYTES % (AUTO) 10.4 %; NEUTROPHILS # (AUTO) 3.7 10^3/uL (1.5-6.6); NEUTROPHILS % (AUTO) 78.7 %; PLT - PLATELET COUNT 117 10^3/uL (130-450); RED CELL DISTRIBUTION WIDTH 15.4 % (12.0-15.0); WHITE BLOOD COUNT 4.8 x10^3/uL (4.8-10.8)
[2018-02-12] MEDS: LEVOTHYROXINE 25 MCG TABLET PO SCH (06:57)
[2018-02-12] MEDS: FERROUS SULFATE 325 MG TABLET PO SCH (07:57)
[2018-02-12] MEDS: ASPIRIN 325 MG TABLET PO SCH (07:57)
[2018-02-12] MEDS: INSULIN ASPART 300 UNIT/3 ML PEN SUBQ SCH ×4 (07:57→21:07)
[2018-02-12] MEDS: FAMOTIDINE 20 MG TABLET PO SCH (07:58)
[2018-02-12] MEDS: POLYETHYLENE GLYCOL 3350 17 GM PACKET PO SCH (07:58)
[2018-02-12] MEDS: MAGNESIUM OXIDE 400 MG TABLET PO SCH (07:58)
[2018-02-12] MEDS: oxyCODONE 5 MG TABLET PO PRN ×4 (08:30→22:05)
[2018-02-12] MEDS: NICOTINE 21 MG PATCH TOP SCH (11:41)
[2018-02-12] MEDS: ENOXAPARIN 100 MG/ML SYRINGE SUBQ SCH ×2 (11:59→22:05)
[2018-02-12] MEDS ORDERED: ENOXAPARIN 100 MG/ML SYRINGE SUBQ SCH (12:00)
--- NOTE | 2018-02-12 12:32 | PROVIDER PROGRESS NOTE ---
Assessment/Plan - Problem List (1) SVT (supraventricular tachycardia) Assessment/Plan: No further dysrhytmias seen. Trops went up then remained elevated which is not consistent with an acute cardiac event like a STEMI or NSTEMI. Echo done yesterday showed preserved LV function and no new wall motion abnorm alities. told yesterday's Hospitalist that the patient has needed cardioversion before. Will add a B-kyra. Pt agreeable. (2) Intertrochanteric fracture of right hip Qualifiers: Encounter type: initial encounter Fracture type: closed Fracture alignment: displaced Qualified Code(s): S72.141A - Displaced intertrochanteric fracture of right femur, initial encounter for closed fracture Assessment/Plan: Pain control is still a problem. RN will ask Dr Pulido if a muscle relaxant can be ordered. Will add Lovenox for DVT prophylaxis, but use therapeutic dose (for chronic Afib), until INR therapeutic. Monitor INR daily. Continue PT. (3) Acute blood loss anemia Assessment/Plan: Pt 's Hgb mirella to 8 after transfusion. Monitor CNC daily til DCh (4) Afib Assessment/Plan: HR controlled on current meds. Will resume Coumadin with a loading dose of 7.5 mg po today, then 5 mg daily . Lovenox for bridging. (5) DM2 (diabetes mellitus, type 2) Qualifiers: Diabetes mellitus senior care insulin use: without senior care use Diabetes mellitus complication status: with hyperglycemia Qualified Code(s): E11.65 - Type 2 diabetes mellitus with hyperglycemia Assessment/Plan: Continue carb-controlled diet and fingerstick checks and ss Insulin coverage. (6) HTN (hypertension) Assessment/Plan: Continue meds for BP control. - Current Meds Current Meds: Current Medications Generic Name Dose Route Start Last Admin Trade Name Freq PRN Reason Stop Dose Admin Acetaminophen 650 mg 02/09/18 18:15 02/11/18 09:19 Tylenol PO 650 mg Q4HR PRN Administration Pain 1 to 4 Aspirin 325 mg 02/11/18 11:00 02/12/18 07:57 Courtney PO 325 mg DAILYWM SULEMA Administration Atorvastatin Calcium 40 mg 02/09/18 22:00 02/11/18 21:12 Lipitor PO 40 mg QPM SULEMA Administration Enoxaparin Sodium 100 mg 02/12/18 11:39 02/12/18 11:59 Lovenox SUBQ 100 mg BID SULEMA Administration Famotidine 20 mg 02/10/18 09:00 02/12/18 07:58 Pepcid PO 20 mg DAILY SULEMA Administration Ferrous Sulfate 325 mg 02/11/18 08:00 02/12/18 07:57 Feosol PO 325 mg DAILYWM SULEMA Administration Insulin Aspart 2 - 10 unit 02/11/18 08:00 02/12/18 11:59 Novolog SUBQ 4 unit 0800,1200,1700,2100 SULEMA Administration Protocol Insulin Glargine 5 unit 02/11/18 21:00 02/11/18 21:12 Lantus Solostar SUBQ 5 unit QPM SULEMA Administration Levothyroxine Sodium 50 mcg 02/10/18 06:00 02/12/18 06:57 Synthroid PO 50 mcg QDAC SULEMA Administration Magnesium Oxide 400 mg 02/09/18 23:00 02/12/18 07:58 Mag Ox PO 400 mg DAILYWM SULEMA Administration Nicotine 1 patch 02/12/18 12:00 02/12/18 11:41 Nicoderm TOP 1 patch DAILY SULEMA Administration Oxycodone HCl 5 mg 02/09/18 18:15 02/12/18 08:30 Roxicodone PO 5 mg Q4HR PRN Administration Pain 5 to 7 Polyethylene Glycol 17 gm 02/10/18 09:00 02/12/18 07:58 Miralax PO 17 gm DAILY SULEMA Administration Sodium Chloride 10 ml 02/09/18 18:15 02/10/18 23:57 Normal Saline Flush 0.9% IVP 10 ml PRN PRN Administration NEEDED PER PROVIDER ORDERS Sodium Chloride 10 ml 02/10/18 01:00 02/12/18 07:58 Normal Saline Flush 0.9% IVP 10 ml 0100,0900,1700 SULEMA Administration Zolpidem Tartrate 5 mg 02/09/18 18:15 02/11/18 21:12 Ambien PO 5 mg QPM PRN Administration Insomnia - Lab Result Fish Bone Diagrams: 02/13/18 04:55 02/13/18 04:55 - Additional Planning My Orders: My Active Orders 02/12/18 Evaluate and Treat PT [PT] Routine 02/12/18 11:39 Enoxaparin [Lovenox] 100 mg SUBQ BID 02/12/18 12:00 Nicotine 21 mg Patch [Nicoderm] 1 patch TOP DAILY 02/12/18 14:00 Warfarin [Coumadin] 7.5 mg PO ONCE ONE 02/13/18 14:00 Warfarin [Coumadin] 5 mg PO [id number] Subjective - Subjective Patient Reports: Feeling Better, No Complaints, Other (Still has pain at surgical site R hip) Nursing Reports: Other (Pt was very tired after sat up in chair, needed to come back to bed via a lift) Objective Vital Signs: Vital Signs - 24 hr 02/11/18 02/11/18 02/11/18 13:00 14:50 15:00 Temperature 37.0 C Heart Rate 73 Heart Rate [ Brachial] Respiratory 19 18 18 Rate Blood Pressure 113/60 Blood Pressure 113/59 L [Left Brachial artery] Blood Pressure [Right Brachial artery] O2 Saturation 98 02/11/18 02/11/18 02/11/18 15:05 16:00 17:00 Temperature 36.9 C Heart Rate 78 Heart Rate [ 71 70 Brachial] Respiratory 19 19 17 Rate Blood Pressure 113/59 L Blood Pressure 111/58 L 120/56 L [Left Brachial artery] Blood Pressure [Right Brachial artery] O2 Saturation 95 96 02/11/18 02/11/18 02/11/18 17:46 17:57 18:00 Temperature 37.1 C 37.0 C Heart Rate 76 73 Heart Rate [ Brachial] Respiratory 20 22 17 Rate Blood Pressure 112/65 112/65 Blood Pressure 112/65 [Left Brachial artery] Blood Pressure [Right Brachial artery] O2 Saturation 94 02/11/18 02/11/18 02/11/18 18:11 19:00 20:00 Temperature 37.1 C 37.1 C 37.0 C Heart Rate 75 Heart Rate [ 68 66 Brachial] Respiratory 14 18 15 Rate Blood Pressure 112/49 L Blood Pressure 114/55 L 100/73 [Left Brachial artery] Blood Pressure [Right Brachial artery] O2 Saturation 96 97 02/11/18 02/11/18 02/11/18 20:35 21:00 22:00 Temperature 37.1 C Heart Rate 71 Heart Rate [ 74 69 Brachial] Respiratory 16 24 14 Rate Blood Pressure Blood Pressure 113/66 114/73 [Left Brachial artery] Blood Pressure [Right Brachial artery] O2 Saturation 98 02/11/18 02/12/18 02/12/18 23:00 07:00 08:00 Temperature 37.4 C Heart Rate Heart Rate [ 70 66 75 Brachial] Respiratory 16 17 21 Rate Blood Pressure Blood Pressure 120/54 L 104/92 H [Left Brachial artery] Blood Pressure [Right Brachial artery] O2 Saturation 96 97 02/12/18 02/12/18 02/12/18 09:00 10:00 11:00 Temperature Heart Rate Heart Rate [ 63 63 67 Brachial] Respiratory 15 17 16 Rate Blood Pressure Blood Pressure 127/60 132/72 H 130/67 [Left Brachial artery] Blood Pressure [Right Brachial artery] O2 Saturation 97 02/12/18 12:00 Temperature Heart Rate Heart Rate [ 81 Brachial] Respiratory 15 Rate Blood Pressure Blood Pressure [Left Brachial artery] Blood Pressure 108/65 [Right Brachial artery] O2 Saturation 95 Oxygen O2 Source Room air I&O (Last 24 Hrs): Intake and Output Totals x24h 02/10/18 02/11/18 02/12/18 23:59 23:59 23:59 Intake Total 3474.75 7614.417 680 Output Total 2145 2300 550 Balance 1329.75 5314.417 130 General: Alert, Oriented x3 HEENT: Mucous membr. moist/pink Neck: Supple, No JVD Neuro: Non Focal Cardiovascular: Regular rate, No murmurs Respiratory: No respiratory distress, Breath sounds nml Abdomen: Soft Extremities: No edema - Results Results: Laboratory Results WBC 4.8 x10^3/uL (4.8-10.8) 02/12/18 04:05 RBC 2.80 10^6/uL (4.70-6.10) L 02/12/18 04:05 Hgb 8.8 g/dL (14.0-18.0) L 02/12/18 04:05 Hct 24.8 % (42.0-52.0) L 02/12/18 04:05 MCV 88.7 fL (80.0-94.0) 02/12/18 04:05 MCH 31.4 pg (27.0-31.0) H 02/12/18 04:05 MCHC 35.4 g/dL (32.0-36.0) 02/12/18 04:05 RDW 15.4 % (12.0-15.0) H 02/12/18 04:05 Plt Count 117 10^3/uL (130-450) L 02/12/18 04:05 MPV 7.4 fL (7.4-11.4) 02/12/18 04:05 Reticulocyte % (Auto) 2.16 % (0.5-2.3) 02/10/18 05:25 Neut # (Auto) 3.7 10^3/uL (1.5-6.6) 02/12/18 04:05 Lymph # (Auto) 0.4 10^3/uL (1.5-3.5) L 02/12/18 04:05 [place] # (Auto) 0.5 10^3/uL (0.0-1.0) 02/12/18 04:05 Eos # (Auto) 0.1 10^3/uL (0.0-0.7) 02/12/18 04:05 Baso # (Auto) 0.0 10^3/uL (0.0-0.1) 02/12/18 04:05 Absolute Nucleated RBC 0.00 x10^3/uL 02/12/18 04:05 Nucleated RBC % 0.0 /100WBC 02/12/18 04:05 Absolute Retic 0.058 10^6/uL (0.020-0.110) 02/10/18 05:25 PT 16.1 secs (9.9-12.6) H 02/12/18 04:01 INR 1.4 (0.8-1.2) H 02/12/18 04:01 APTT 31.9 secs (24.9-33.3) 02/09/18 17:03 D-Dimer 889.4 ng/mL (200.0-255.0) H 02/11/18 10:45 Sodium 132 mmol/L (135-145) L 02/12/18 04:01 Potassium 4.4 mmol/L (3.5-5.0) 02/12/18 04:01 Chloride 102 mmol/L (101-111) 02/12/18 04:01 Carbon Dioxide 24 mmol/L (21-32) 02/12/18 04:01 Anion Gap 6.0 (6-13) 02/12/18 04:01 BUN 14 mg/dL (6-20) 02/12/18 04:01 Creatinine 0.5 mg/dL (0.6-1.2) L 02/12/18 04:01 Estimated GFR (MDRD) 160 (>89) 02/12/18 04:01 Glucose 186 mg/dL (70-100) H 02/12/18 04:01 Glycated Hemoglobin 5.3 % (4.6-6.2) 02/10/18 05:25 Estim Average Glucose 105 (70-100) H 02/10/18 05:25 Calcium 8.1 mg/dL (8.5-10.3) L 02/12/18 04:01 Magnesium 1.7 mg/dL (1.7-2.8) 02/10/18 05:25 Iron 45 ug/dL (45-182) 02/10/18 05:25 TIBC 259 ug/dL (250-450) 02/10/18 05:25 % Saturation 17 % (20-50) L 02/10/18 05:25 Transferrin 185 mg/dL (180-329) 02/10/18 05:25 Ferritin 36.8 ng/mL (23.9-336.2) 02/10/18 05:25 Total Bilirubin 1.0 mg/dL (0.2-1.0) 02/12/18 04:01 AST 22 IU/L (10-42) 02/12/18 04:01 ALT 12 IU/L (10-60) 02/12/18 04:01 Alkaline Phosphatase 46 IU/L (42-121) 02/12/18 04:01 Lactate Dehydrogenase 114 IU/L (91-225) 02/10/18 05:25 Troponin I 0.46 ng/mL (<0.49) 02/12/18 04:01 Total Protein 5.3 g/dL (6.7-8.2) L 02/12/18 04:01 Albumin 2.9 g/dL (3.2-5.5) L 02/12/18 04:01 Globulin 2.4 g/dL (2.1-4.2) 02/12/18 04:01 Albumin/Globulin Ratio 1.2 (1.0-2.2) 02/12/18 04:01 Lipase 37 U/L (22-51) 02/09/18 17:03 Vitamin B12 425 pg/mL (180-914) 02/10/18 05:25 TSH 1.51 uIU/mL (0.34-5.60) 02/10/18 05:25 Blood Type Cancelled 02/10/18 06:38 Blood Type Recheck O POSITIVE 02/10/18 05:15 Antibody Screen NEGATIVE 02/09/18 17:03 Crossmatch IS Only See Detail 02/09/18 17:03 ABX Reporting Has patient been on IV antibiotics over the past 48 hours?: No
--- NOTE | 2018-02-12 13:05 | PROVIDER PROGRESS NOTE ---
Subjective - Prog Note Date Prog Note Date: 02/12/18 Prog Note Time: 13:03 - Subjective Pt reports feeling: Improved (Feeling better today.) Objective - Vital Signs/Intake & Output Vital Signs: Vital Signs x48h Temp Pulse Resp BP BP Pulse Ox 02/12/18 12:00 81 15 108/65 95 02/12/18 11:00 67 16 130/67 97 02/12/18 10:00 63 17 132/72 H 02/12/18 09:00 63 15 127/60 02/12/18 08:00 75 21 104/92 H 02/12/18 07:00 37.4 C 66 17 97 Intake & Output: Intake & Output 02/09/18 02/10/18 02/11/18 02/12/18 23:59 23:59 23:59 23:59 Intake Total 700.5 3474.75 7614.417 680 Output Total 150 2145 2300 550 Balance 550.5 1329.75 5314.417 130 - Lab Results Fish Bones: 02/12/18 04:05 02/12/18 04:01 Other Labs: Lab Results x24hrs 02/12/18 02/12/18 02/12/18 Range/Units 04:05 04:01 04:01 WBC 4.8 (4.8-10.8) x10^3/uL RBC 2.80 L (4.70-6.10) 10^6/uL Hgb 8.8 L (14.0-18.0) g/dL Hct 24.8 L (42.0-52.0) % MCV 88.7 (80.0-94.0) fL MCH 31.4 H (27.0-31.0) pg MCHC 35.4 (32.0-36.0) g/dL RDW 15.4 H (12.0-15.0) % Plt Count 117 L (130-450) 10^3/uL MPV 7.4 (7.4-11.4) fL Neut # (Auto) 3.7 (1.5-6.6) 10^3/uL Lymph # (Auto) 0.4 L (1.5-3.5) 10^3/uL [place] # (Auto) 0.5 (0.0-1.0) 10^3/uL Eos # (Auto) 0.1 (0.0-0.7) 10^3/uL Baso # (Auto) 0.0 (0.0-0.1) 10^3/uL Absolute Nucleated RBC 0.00 x10^3/uL Nucleated RBC % 0.0 /100WBC PT 16.1 H (9.9-12.6) secs INR 1.4 H (0.8-1.2) Sodium (135-145) mmol/L Potassium (3.5-5.0) mmol/L Chloride (101-111) mmol/L Carbon Dioxide (21-32) mmol/L Anion Gap (6-13) BUN (6-20) mg/dL Creatinine (0.6-1.2) mg/dL Estimated GFR (MDRD) (>89) Glucose (70-100) mg/dL Calcium (8.5-10.3) mg/dL Total Bilirubin (0.2-1.0) mg/dL AST (10-42) IU/L ALT (10-60) IU/L Alkaline Phosphatase (42-121) IU/L Troponin I 0.46 (<0.49) ng/mL Total Protein (6.7-8.2) g/dL Albumin (3.2-5.5) g/dL Globulin (2.1-4.2) g/dL Albumin/Globulin Ratio (1.0-2.2) Blood Type Antibody Screen Crossmatch IS Only 02/12/18 02/11/18 02/11/18 Range/Units 04:01 22:02 16:08 WBC (4.8-10.8) x10^3/uL RBC (4.70-6.10) 10^6/uL Hgb (14.0-18.0) g/dL Hct (42.0-52.0) % MCV (80.0-94.0) fL MCH (27.0-31.0) pg MCHC (32.0-36.0) g/dL RDW (12.0-15.0) % Plt Count (130-450) 10^3/uL MPV (7.4-11.4) fL Neut # (Auto) (1.5-6.6) 10^3/uL Lymph # (Auto) (1.5-3.5) 10^3/uL [place] # (Auto) (0.0-1.0) 10^3/uL Eos # (Auto) (0.0-0.7) 10^3/uL Baso # (Auto) (0.0-0.1) 10^3/uL Absolute Nucleated RBC x10^3/uL Nucleated RBC % /100WBC PT (9.9-12.6) secs INR (0.8-1.2) Sodium 132 L (135-145) mmol/L Potassium 4.4 (3.5-5.0) mmol/L Chloride 102 (101-111) mmol/L Carbon Dioxide 24 (21-32) mmol/L Anion Gap 6.0 (6-13) BUN 14 (6-20) mg/dL Creatinine 0.5 L (0.6-1.2) mg/dL Estimated GFR (MDRD) 160 (>89) Glucose 186 H (70-100) mg/dL Calcium 8.1 L (8.5-10.3) mg/dL Total Bilirubin 1.0 (0.2-1.0) mg/dL AST 22 (10-42) IU/L ALT 12 (10-60) IU/L Alkaline Phosphatase 46 (42-121) IU/L Troponin I 0.51 H* 0.45 (<0.49) ng/mL Total Protein 5.3 L (6.7-8.2) g/dL Albumin 2.9 L (3.2-5.5) g/dL Globulin 2.4 (2.1-4.2) g/dL Albumin/Globulin Ratio 1.2 (1.0-2.2) Blood Type Antibody Screen Crossmatch IS Only 02/09/18 02/09/18 Range/Units 17:03 17:03 WBC (4.8-10.8) x10^3/uL RBC (4.70-6.10) 10^6/uL Hgb (14.0-18.0) g/dL Hct (42.0-52.0) % MCV (80.0-94.0) fL MCH (27.0-31.0) pg MCHC (32.0-36.0) g/dL RDW (12.0-15.0) % Plt Count (130-450) 10^3/uL MPV (7.4-11.4) fL Neut # (Auto) (1.5-6.6) 10^3/uL Lymph # (Auto) (1.5-3.5) 10^3/uL [place] # (Auto) (0.0-1.0) 10^3/uL Eos # (Auto) (0.0-0.7) 10^3/uL Baso # (Auto) (0.0-0.1) 10^3/uL Absolute Nucleated RBC x10^3/uL Nucleated RBC % /100WBC PT (9.9-12.6) secs INR (0.8-1.2) Sodium (135-145) mmol/L Potassium (3.5-5.0) mmol/L Chloride (101-111) mmol/L Carbon Dioxide (21-32) mmol/L Anion Gap (6-13) BUN (6-20) mg/dL Creatinine (0.6-1.2) mg/dL Estimated GFR (MDRD) (>89) Glucose (70-100) mg/dL Calcium (8.5-10.3) mg/dL Total Bilirubin (0.2-1.0) mg/dL AST (10-42) IU/L ALT (10-60) IU/L Alkaline Phosphatase (42-121) IU/L Troponin I (<0.49) ng/mL Total Protein (6.7-8.2) g/dL Albumin (3.2-5.5) g/dL Globulin (2.1-4.2) g/dL Albumin/Globulin Ratio (1.0-2.2) Blood Type Cancelled Cancelled Antibody Screen Cancelled Cancelled Crossmatch IS Only See Detail See Detail - Other Results/Comments Other Results/Comments: EXAM: dressing intact. N/V ok distally. Standing on floor with assistance Assessment/Plan - Problem List (1) Intertrochanteric fracture of right hip Impression: Satis post op PLAN: Mobilize as tolerated. Lovenox for DVT prophylaxis while coumadin is restarted and Vit K has been reversed. Qualifiers: Encounter type: initial encounter Fracture type: closed Fracture alignment: displaced Qualified Code(s): S72.141A - Displaced intertrochanteric fracture of right femur, initial encounter for closed fracture
[2018-02-12] MEDS ORDERED: WARFARIN 5 MG TABLET PO SCH (14:00)
[2018-02-12] MEDS ORDERED: WARFARIN 5 MG TABLET PO ONE (14:00)
[2018-02-12] MEDS: SENNA 8.6 MG TABLET PO SCH (14:36)
[2018-02-12] MEDS: DOCUSATE SODIUM 250 MG CAPSULE PO SCH (14:36)
[2018-02-12] MEDS: ATORVASTATIN 40 MG TABLET PO SCH (20:43)
[2018-02-12] MEDS: METOPROLOL SUCCINATE 25 MG TABLET PO SCH (20:43)
[2018-02-12] MEDS: INSULIN GLARGINE 300 UNIT/3 ML PEN SUBQ SCH (21:06)
[2018-02-12] MEDS: SODIUM CHLORIDE FLUSH 0.9% 10 ML SYRINGE IVP PRN (23:56)
[2018-02-13] MEDS: oxyCODONE 5 MG TABLET PO PRN ×4 (05:03→17:34)
[2018-02-13 05:18] LABS: ALBUMIN 3.3 g/dL (3.2-5.5); ALBUMIN/GLOBULIN RATIO 1.1 (1.0-2.2); BILIRUBIN,TOTAL 1.1 mg/dL (0.2-1.0); CALCIUM 8.6 mg/dL (8.5-10.3); CREATININE 0.7 mg/dL (0.6-1.2); TOTAL PROTEIN 6.2 g/dL (6.7-8.2)
[2018-02-13 05:29] LABS: BASOPHILS % (AUTO) 0.9 %; EOSINOPHILS # (AUTO) 0.1 10^3/uL (0.0-0.7); EOSINOPHILS % (AUTO) 2.6 %; HGB - HEMOGLOBIN 10.3 g/dL (14.0-18.0); LYMPHOCYTES # (AUTO) 0.6 10^3/uL (1.5-3.5); LYMPHOCYTES % (AUTO) 16.6 %; MEAN CORPUSCULAR HEMOGLOBIN 31.6 pg (27.0-31.0); MEAN CORPUSCULAR HGB CONC 35.2 g/dL (32.0-36.0); MEAN CORPUSCULAR VOLUME 89.7 fL (80.0-94.0); MEAN PLATELET VOLUME 7.7 fL (7.4-11.4); MONOCYTES # (AUTO) 0.4 10^3/uL (0.0-1.0); MONOCYTES % (AUTO) 10.3 %; NEUTROPHILS # (AUTO) 2.7 10^3/uL (1.5-6.6); NEUTROPHILS % (AUTO) 69.6 %; PLT - PLATELET COUNT 162 10^3/uL (130-450); RED BLOOD COUNT 3.25 10^6/uL (4.70-6.10); RED CELL DISTRIBUTION WIDTH 15.1 % (12.0-15.0); WHITE BLOOD COUNT 3.8 x10^3/uL (4.8-10.8)
[2018-02-13 05:31] LABS: PT - PROTHROMBIN TIME 21.9 secs (9.9-12.6)
[2018-02-13] MEDS: LEVOTHYROXINE 25 MCG TABLET PO SCH (07:05)
[2018-02-13] MEDS: FERROUS SULFATE 325 MG TABLET PO SCH (08:15)
[2018-02-13] MEDS: INSULIN ASPART 300 UNIT/3 ML PEN SUBQ SCH ×4 (08:45→20:15)
[2018-02-13] MEDS: METOPROLOL SUCCINATE 25 MG TABLET PO SCH ×2 (08:47→20:13)
[2018-02-13] MEDS: SENNA 8.6 MG TABLET PO SCH (08:47)
[2018-02-13] MEDS: MAGNESIUM OXIDE 400 MG TABLET PO SCH (08:47)
[2018-02-13] MEDS: FAMOTIDINE 20 MG TABLET PO SCH (08:48)
[2018-02-13] MEDS: ASPIRIN 325 MG TABLET PO SCH (08:48)
[2018-02-13] MEDS: DOCUSATE SODIUM 250 MG CAPSULE PO SCH (08:48)
[2018-02-13] MEDS: POLYETHYLENE GLYCOL 3350 17 GM PACKET PO SCH (08:49)
[2018-02-13] MEDS: ENOXAPARIN 100 MG/ML SYRINGE SUBQ SCH (08:49)
[2018-02-13] MEDS: NICOTINE 21 MG PATCH TOP SCH (08:50)
[2018-02-13] MEDS: SODIUM CHLORIDE FLUSH 0.9% 10 ML SYRINGE IVP SCH ×2 (08:57→16:47)
--- NOTE | 2018-02-13 12:58 | PROVIDER PROGRESS NOTE ---
Subjective - Prog Note Date Prog Note Date: 02/13/18 Prog Note Time: 12:56 - Subjective Pt reports feeling: Improved (No new complaints) Objective - Vital Signs/Intake & Output Vital Signs: Vital Signs x48h Temp Pulse Resp BP Pulse Ox 02/13/18 07:40 36.7 C 72 18 145/64 H 96 02/13/18 05:00 36.3 C L 70 17 146/70 H 97 Intake & Output: Intake & Output 02/10/18 02/11/18 02/12/18 02/13/18 23:59 23:59 23:59 23:59 Intake Total 3474.75 7614.417 1390 1130 Output Total 2145 2300 850 1550 Balance 1329.75 5314.417 540 -420 - Lab Results Fish Bones: 02/13/18 04:55 02/13/18 04:55 Other Labs: Lab Results x24hrs 02/13/18 02/13/18 02/13/18 Range/Units 11:59 07:41 04:55 WBC (4.8-10.8) x10^3/uL RBC (4.70-6.10) 10^6/uL Hgb (14.0-18.0) g/dL Hct (42.0-52.0) % MCV (80.0-94.0) fL MCH (27.0-31.0) pg MCHC (32.0-36.0) g/dL RDW (12.0-15.0) % Plt Count (130-450) 10^3/uL MPV (7.4-11.4) fL Neut # (Auto) (1.5-6.6) 10^3/uL Lymph # (Auto) (1.5-3.5) 10^3/uL [place] # (Auto) (0.0-1.0) 10^3/uL Eos # (Auto) (0.0-0.7) 10^3/uL Baso # (Auto) (0.0-0.1) 10^3/uL Absolute Nucleated RBC x10^3/uL Nucleated RBC % /100WBC PT 21.9 H (9.9-12.6) secs INR 2.0 H (0.8-1.2) Sodium (135-145) mmol/L Potassium (3.5-5.0) mmol/L Chloride (101-111) mmol/L Carbon Dioxide (21-32) mmol/L Anion Gap (6-13) BUN (6-20) mg/dL Creatinine (0.6-1.2) mg/dL Estimated GFR (MDRD) (>89) Glucose (70-100) mg/dL POC Whole Bld Glucose 212 H 184 H (70 - 100) mg/dL Calcium (8.5-10.3) mg/dL Total Bilirubin (0.2-1.0) mg/dL AST (10-42) IU/L ALT (10-60) IU/L Alkaline Phosphatase (42-121) IU/L Total Protein (6.7-8.2) g/dL Albumin (3.2-5.5) g/dL Globulin (2.1-4.2) g/dL Albumin/Globulin Ratio (1.0-2.2) Crossmatch IS Only 02/13/18 02/13/18 02/12/18 Range/Units 04:55 04:55 20:51 WBC 3.8 L (4.8-10.8) x10^3/uL RBC 3.25 L (4.70-6.10) 10^6/uL Hgb 10.3 L (14.0-18.0) g/dL Hct 29.2 L (42.0-52.0) % MCV 89.7 (80.0-94.0) fL MCH 31.6 H (27.0-31.0) pg MCHC 35.2 (32.0-36.0) g/dL RDW 15.1 H (12.0-15.0) % Plt Count 162 (130-450) 10^3/uL MPV 7.7 (7.4-11.4) fL Neut # (Auto) 2.7 (1.5-6.6) 10^3/uL Lymph # (Auto) 0.6 L (1.5-3.5) 10^3/uL [place] # (Auto) 0.4 (0.0-1.0) 10^3/uL Eos # (Auto) 0.1 (0.0-0.7) 10^3/uL Baso # (Auto) 0.0 (0.0-0.1) 10^3/uL Absolute Nucleated RBC 0.00 x10^3/uL Nucleated RBC % 0.0 /100WBC PT (9.9-12.6) secs INR (0.8-1.2) Sodium 133 L (135-145) mmol/L Potassium 3.9 (3.5-5.0) mmol/L Chloride 98 L (101-111) mmol/L Carbon Dioxide 26 (21-32) mmol/L Anion Gap 9.0 (6-13) BUN 11 (6-20) mg/dL Creatinine 0.7 (0.6-1.2) mg/dL Estimated GFR (MDRD) 108 (>89) Glucose 164 H (70-100) mg/dL POC Whole Bld Glucose 174 H (70 - 100) mg/dL Calcium 8.6 (8.5-10.3) mg/dL Total Bilirubin 1.1 H (0.2-1.0) mg/dL AST 26 (10-42) IU/L ALT 14 (10-60) IU/L Alkaline Phosphatase 52 (42-121) IU/L Total Protein 6.2 L (6.7-8.2) g/dL Albumin 3.3 (3.2-5.5) g/dL Globulin 2.9 (2.1-4.2) g/dL Albumin/Globulin Ratio 1.1 (1.0-2.2) Crossmatch IS Only 02/12/18 02/12/18 02/12/18 Range/Units 16:35 11:42 07:33 WBC (4.8-10.8) x10^3/uL RBC (4.70-6.10) 10^6/uL Hgb (14.0-18.0) g/dL Hct (42.0-52.0) % MCV (80.0-94.0) fL MCH (27.0-31.0) pg MCHC (32.0-36.0) g/dL RDW (12.0-15.0) % Plt Count (130-450) 10^3/uL MPV (7.4-11.4) fL Neut # (Auto) (1.5-6.6) 10^3/uL Lymph # (Auto) (1.5-3.5) 10^3/uL [place] # (Auto) (0.0-1.0) 10^3/uL Eos # (Auto) (0.0-0.7) 10^3/uL Baso # (Auto) (0.0-0.1) 10^3/uL Absolute Nucleated RBC x10^3/uL Nucleated RBC % /100WBC PT (9.9-12.6) secs INR (0.8-1.2) Sodium (135-145) mmol/L Potassium (3.5-5.0) mmol/L Chloride (101-111) mmol/L Carbon Dioxide (21-32) mmol/L Anion Gap (6-13) BUN (6-20) mg/dL Creatinine (0.6-1.2) mg/dL Estimated GFR (MDRD) (>89) Glucose (70-100) mg/dL POC Whole Bld Glucose 188 H 212 H 195 H (70 - 100) mg/dL Calcium (8.5-10.3) mg/dL Total Bilirubin (0.2-1.0) mg/dL AST (10-42) IU/L ALT (10-60) IU/L Alkaline Phosphatase (42-121) IU/L Total Protein (6.7-8.2) g/dL Albumin (3.2-5.5) g/dL Globulin (2.1-4.2) g/dL Albumin/Globulin Ratio (1.0-2.2) Crossmatch IS Only 02/11/18 02/11/18 02/11/18 Range/Units 20:33 16:38 11:40 WBC (4.8-10.8) x10^3/uL RBC (4.70-6.10) 10^6/uL Hgb (14.0-18.0) g/dL Hct (42.0-52.0) % MCV (80.0-94.0) fL MCH (27.0-31.0) pg MCHC (32.0-36.0) g/dL RDW (12.0-15.0) % Plt Count (130-450) 10^3/uL MPV (7.4-11.4) fL Neut # (Auto) (1.5-6.6) 10^3/uL Lymph # (Auto) (1.5-3.5) 10^3/uL [place] # (Auto) (0.0-1.0) 10^3/uL Eos # (Auto) (0.0-0.7) 10^3/uL Baso # (Auto) (0.0-0.1) 10^3/uL Absolute Nucleated RBC x10^3/uL Nucleated RBC % /100WBC PT (9.9-12.6) secs INR (0.8-1.2) Sodium (135-145) mmol/L Potassium (3.5-5.0) mmol/L Chloride (101-111) mmol/L Carbon Dioxide (21-32) mmol/L Anion Gap (6-13) BUN (6-20) mg/dL Creatinine (0.6-1.2) mg/dL Estimated GFR (MDRD) (>89) Glucose (70-100) mg/dL POC Whole Bld Glucose 182 H 178 H 294 H (70 - 100) mg/dL Calcium (8.5-10.3) mg/dL Total Bilirubin (0.2-1.0) mg/dL AST (10-42) IU/L ALT (10-60) IU/L Alkaline Phosphatase (42-121) IU/L Total Protein (6.7-8.2) g/dL Albumin (3.2-5.5) g/dL Globulin (2.1-4.2) g/dL Albumin/Globulin Ratio (1.0-2.2) Crossmatch IS Only 02/11/18 02/10/18 02/10/18 Range/Units 07:43 20:19 16:48 WBC (4.8-10.8) x10^3/uL RBC (4.70-6.10) 10^6/uL Hgb (14.0-18.0) g/dL Hct (42.0-52.0) % MCV (80.0-94.0) fL MCH (27.0-31.0) pg MCHC (32.0-36.0) g/dL RDW (12.0-15.0) % Plt Count (130-450) 10^3/uL MPV (7.4-11.4) fL Neut # (Auto) (1.5-6.6) 10^3/uL Lymph # (Auto) (1.5-3.5) 10^3/uL [place] # (Auto) (0.0-1.0) 10^3/uL Eos # (Auto) (0.0-0.7) 10^3/uL Baso # (Auto) (0.0-0.1) 10^3/uL Absolute Nucleated RBC x10^3/uL Nucleated RBC % /100WBC PT (9.9-12.6) secs INR (0.8-1.2) Sodium (135-145) mmol/L Potassium (3.5-5.0) mmol/L Chloride (101-111) mmol/L Carbon Dioxide (21-32) mmol/L Anion Gap (6-13) BUN (6-20) mg/dL Creatinine (0.6-1.2) mg/dL Estimated GFR (MDRD) (>89) Glucose (70-100) mg/dL POC Whole Bld Glucose 211 H 247 H 271 H (70 - 100) mg/dL Calcium (8.5-10.3) mg/dL Total Bilirubin (0.2-1.0) mg/dL AST (10-42) IU/L ALT (10-60) IU/L Alkaline Phosphatase (42-121) IU/L Total Protein (6.7-8.2) g/dL Albumin (3.2-5.5) g/dL Globulin (2.1-4.2) g/dL Albumin/Globulin Ratio (1.0-2.2) Crossmatch IS Only 02/10/18 02/10/18 02/09/18 Range/Units 11:28 06:39 21:17 WBC (4.8-10.8) x10^3/uL RBC (4.70-6.10) 10^6/uL Hgb (14.0-18.0) g/dL Hct (42.0-52.0) % MCV (80.0-94.0) fL MCH (27.0-31.0) pg MCHC (32.0-36.0) g/dL RDW (12.0-15.0) % Plt Count (130-450) 10^3/uL MPV (7.4-11.4) fL Neut # (Auto) (1.5-6.6) 10^3/uL Lymph # (Auto) (1.5-3.5) 10^3/uL [place] # (Auto) (0.0-1.0) 10^3/uL Eos # (Auto) (0.0-0.7) 10^3/uL Baso # (Auto) (0.0-0.1) 10^3/uL Absolute Nucleated RBC x10^3/uL Nucleated RBC % /100WBC PT (9.9-12.6) secs INR (0.8-1.2) Sodium (135-145) mmol/L Potassium (3.5-5.0) mmol/L Chloride (101-111) mmol/L Carbon Dioxide (21-32) mmol/L Anion Gap (6-13) BUN (6-20) mg/dL Creatinine (0.6-1.2) mg/dL Estimated GFR (MDRD) (>89) Glucose (70-100) mg/dL POC Whole Bld Glucose 209 H 209 H 261 H (70 - 100) mg/dL Calcium (8.5-10.3) mg/dL Total Bilirubin (0.2-1.0) mg/dL AST (10-42) IU/L ALT (10-60) IU/L Alkaline Phosphatase (42-121) IU/L Total Protein (6.7-8.2) g/dL Albumin (3.2-5.5) g/dL Globulin (2.1-4.2) g/dL Albumin/Globulin Ratio (1.0-2.2) Crossmatch IS Only 02/09/18 Range/Units 17:03 WBC (4.8-10.8) x10^3/uL RBC (4.70-6.10) 10^6/uL Hgb (14.0-18.0) g/dL Hct (42.0-52.0) % MCV (80.0-94.0) fL MCH (27.0-31.0) pg MCHC (32.0-36.0) g/dL RDW (12.0-15.0) % Plt Count (130-450) 10^3/uL MPV (7.4-11.4) fL Neut # (Auto) (1.5-6.6) 10^3/uL Lymph # (Auto) (1.5-3.5) 10^3/uL [place] # (Auto) (0.0-1.0) 10^3/uL Eos # (Auto) (0.0-0.7) 10^3/uL Baso # (Auto) (0.0-0.1) 10^3/uL Absolute Nucleated RBC x10^3/uL Nucleated RBC % /100WBC PT (9.9-12.6) secs INR (0.8-1.2) Sodium (135-145) mmol/L Potassium (3.5-5.0) mmol/L Chloride (101-111) mmol/L Carbon Dioxide (21-32) mmol/L Anion Gap (6-13) BUN (6-20) mg/dL Creatinine (0.6-1.2) mg/dL Estimated GFR (MDRD) (>89) Glucose (70-100) mg/dL POC Whole Bld Glucose (70 - 100) mg/dL Calcium (8.5-10.3) mg/dL Total Bilirubin (0.2-1.0) mg/dL AST (10-42) IU/L ALT (10-60) IU/L Alkaline Phosphatase (42-121) IU/L Total Protein (6.7-8.2) g/dL Albumin (3.2-5.5) g/dL Globulin (2.1-4.2) g/dL Albumin/Globulin Ratio (1.0-2.2) Crossmatch IS Only See Detail - Other Results/Comments Other Results/Comments: Exam: Minimal pain with hip motion. N/V ok distally. Sitting in chair eating without problems Assessment/Plan - Problem List (1) Intertrochanteric fracture of right hip Impression: Satis post op PLAN: to SNF in AM for post op rehab. Walker ambulate - WBAT on right. Follow up in orthopedic office in 2 weeks for shelly out and new XR. Qualifiers: Encounter type: initial encounter Fracture type: closed Fracture alignment: displaced Qualified Code(s): S72.141A - Displaced intertrochanteric fracture of right femur, initial encounter for closed fracture
[2018-02-13] MEDS: ACETAMINOPHEN 325 MG TABLET PO PRN (13:18)
[2018-02-13] MEDS ORDERED: WARFARIN 5 MG TABLET PO SCH ×2 (14:00→18:00)
--- NOTE | 2018-02-13 19:35 | PROVIDER PROGRESS NOTE ---
Assessment/Plan - Problem List (1) SVT (supraventricular tachycardia) Assessment/Plan: Pt required Adenosine 6 then 12 mg and tachycardia broke. Even though it was wide complex, Adenosine was tried and worked, therefore it was SVT omid collins. Add a small dose of B-kyra. (2) Intertrochanteric fracture of right hip Qualifiers: Encounter type: initial encounter Fracture type: closed Fracture alignment: displaced Qualified Code(s): S72.141A - Displaced intertrochanteric fracture of right femur, initial encounter for closed fracture Assessment/Plan: Pain control and PT now planned post-op. (3) Acute blood loss anemia Assessment/Plan: Pt required blood transfusion when BP low (partly from tachycardia) and H/H dropped. Pt agreed, after initially refusing. Follow CBC daily while here (4) Afib Assessment/Plan: Rate is adequately controlled. Restart Coumadin when OK with surgery, with Lovenox bridging. (5) DM2 (diabetes mellitus, type 2) Qualifiers: Diabetes mellitus intermediate insulin use: without intermediate use Diabetes mellitus complication status: with hyperglycemia Qualified Code(s): E11.65 - Type 2 diabetes mellitus with hyperglycemia Assessment/Plan: Continue carb-controlled diet, glu checks and ss Insulin coverage. (6) HTN (hypertension) Assessment/Plan: Cont home meds - Current Meds Current Meds: Current Medications Generic Name Dose Route Start Last Admin Trade Name Freq PRN Reason Stop Dose Admin Acetaminophen 650 mg 02/09/18 18:15 02/13/18 13:18 Tylenol PO 325 mg Q4HR PRN Administration Pain 1 to 4 Aspirin 325 mg 02/11/18 11:00 02/13/18 08:48 Courtney PO 325 mg DAILYWM SULEMA Administration Atorvastatin Calcium 40 mg 02/09/18 22:00 02/12/18 20:43 Lipitor PO 40 mg QPM SULEMA Administration Diphenhydramine HCl 25 mg 02/09/18 22:30 02/13/18 01:36 Benadryl PO 25 mg QPM PRN Administration Insomnia Docusate Sodium 250 - 500 mg 02/12/18 15:00 02/13/18 08:48 Colace 250mg Capsule PO 500 mg DAILY SULEMA Administration Famotidine 20 mg 02/10/18 09:00 02/13/18 08:48 Pepcid PO 20 mg DAILY SULEMA Administration Ferrous Sulfate 325 mg 02/11/18 08:00 02/13/18 08:15 Feosol PO 325 mg DAILYWM SULEMA Administration Insulin Aspart 2 - 10 unit 02/11/18 08:00 02/13/18 16:46 Novolog SUBQ 2 unit 0800,1200,1700,2100 SULEMA Administration Protocol Insulin Glargine 5 unit 02/11/18 21:00 02/12/18 21:06 Lantus Solostar SUBQ 5 unit QPM SULEMA Administration Levothyroxine Sodium 50 mcg 02/10/18 06:00 02/13/18 07:05 Synthroid PO 50 mcg QDAC SULEMA Administration Magnesium Oxide 400 mg 02/09/18 23:00 02/13/18 08:47 Mag Ox PO 400 mg DAILYWM SULEMA Administration Metoprolol Succinate 12.5 mg 02/12/18 21:00 02/13/18 08:47 Toprol Xl PO 12.5 mg BID SULEMA Administration Nicotine 1 patch 02/12/18 12:00 02/13/18 08:50 Nicoderm TOP 1 patch DAILY SULEMA Administration Oxycodone HCl 5 mg 02/09/18 18:15 02/13/18 17:34 Roxicodone PO 5 mg Q4HR PRN Administration Pain 5 to 7 Polyethylene Glycol 17 gm 02/10/18 09:00 02/13/18 08:49 Miralax PO 17 gm DAILY SULMEA Administration Senna 8.6 - 17.2 mg 02/12/18 15:00 02/13/18 08:47 Senokot PO 17.2 mg DAILY SULEMA Administration Sodium Chloride 10 ml 02/09/18 18:15 02/12/18 23:56 Normal Saline Flush 0.9% IVP 10 ml PRN PRN Administration NEEDED PER PROVIDER ORDERS Sodium Chloride 10 ml 02/10/18 01:00 02/13/18 16:47 Normal Saline Flush 0.9% IVP 10 ml 0100,0900,1700 SULEMA Administration Warfarin Sodium 5 mg 02/13/18 18:00 02/13/18 17:38 Coumadin PO 5 mg MoWeFr@1800 SULEMA Administration Zolpidem Tartrate 5 mg 02/09/18 18:15 02/11/18 21:12 Ambien PO 5 mg QPM PRN Administration Insomnia - Lab Result Fish Bone Diagrams: 02/14/18 04:40 02/14/18 04:40 - Additional Planning My Orders: My Active Orders 02/12/18 21:00 Metoprolol Succinate [Toprol Xl] 12.5 mg PO BID 02/13/18 18:00 Warfarin [Coumadin] 5 mg PO MoWeFr@1800 02/14/18 05:00 BMP - BASIC METABOLIC PANEL [CHEM] DAILYLAB 02/14/18 18:00 Warfarin [Coumadin] 2.5 mg PO SuTuThSa@1800 02/15/18 05:00 BMP - BASIC METABOLIC PANEL [CHEM] DAILYLAB Subjective - Subjective Patient Reports: Feeling Better, Resting Comfortably, No Complaints Objective Vital Signs: Vital Signs - 24 hr 02/12/18 02/12/18 02/13/18 20:40 23:56 05:00 Temperature 37.2 C 36.9 C 36.3 C L Heart Rate [ 75 63 70 Brachial] Respiratory 18 18 17 Rate Blood Pressure 132/68 H 141/61 H 146/70 H [Right Brachial artery] O2 Saturation 96 94 97 02/13/18 02/13/18 02/13/18 07:40 15:00 18:02 Temperature 36.7 C 36.9 C 38.3 C H Heart Rate [ 72 69 Brachial] Respiratory 18 18 Rate Blood Pressure 145/64 H 121/72 [Right Brachial artery] O2 Saturation 96 96 Oxygen O2 Source Room air I&O (Last 24 Hrs): Intake and Output Totals x24h 02/11/18 02/12/18 02/13/18 23:59 23:59 23:59 Intake Total 7614.417 1390 1860 Output Total 2300 850 1875 Balance 5314.417 540 -15 General: Alert, Oriented x3 HEENT: Mucous membr. moist/pink Neck: Supple, No JVD Neuro: Non Focal Cardiovascular: No murmurs Respiratory: No respiratory distress, Other (Increased AP diameter of chest) Abdomen: Soft, No tenderness Extremities: No edema - Results Results: Laboratory Results WBC 3.8 x10^3/uL (4.8-10.8) L 02/13/18 04:55 RBC 3.25 10^6/uL (4.70-6.10) L 02/13/18 04:55 Hgb 10.3 g/dL (14.0-18.0) L 02/13/18 04:55 Hct 29.2 % (42.0-52.0) L 02/13/18 04:55 MCV 89.7 fL (80.0-94.0) 02/13/18 04:55 MCH 31.6 pg (27.0-31.0) H 02/13/18 04:55 MCHC 35.2 g/dL (32.0-36.0) 02/13/18 04:55 RDW 15.1 % (12.0-15.0) H 02/13/18 04:55 Plt Count 162 10^3/uL (130-450) 02/13/18 04:55 MPV 7.7 fL (7.4-11.4) 02/13/18 04:55 Reticulocyte % (Auto) 2.16 % (0.5-2.3) 02/10/18 05:25 Neut # (Auto) 2.7 10^3/uL (1.5-6.6) 02/13/18 04:55 Lymph # (Auto) 0.6 10^3/uL (1.5-3.5) L 02/13/18 04:55 Door # (Auto) 0.4 10^3/uL (0.0-1.0) 02/13/18 04:55 Eos # (Auto) 0.1 10^3/uL (0.0-0.7) 02/13/18 04:55 Baso # (Auto) 0.0 10^3/uL (0.0-0.1) 02/13/18 04:55 Absolute Nucleated RBC 0.00 x10^3/uL 02/13/18 04:55 Nucleated RBC % 0.0 /100WBC 02/13/18 04:55 Absolute Retic 0.058 10^6/uL (0.020-0.110) 02/10/18 05:25 PT 21.9 secs (9.9-12.6) H 02/13/18 04:55 INR 2.0 (0.8-1.2) H 02/13/18 04:55 APTT 31.9 secs (24.9-33.3) 02/09/18 17:03 D-Dimer 889.4 ng/mL (200.0-255.0) H 02/11/18 10:45 Sodium 133 mmol/L (135-145) L 02/13/18 04:55 Potassium 3.9 mmol/L (3.5-5.0) 02/13/18 04:55 Chloride 98 mmol/L (101-111) L 02/13/18 04:55 Carbon Dioxide 26 mmol/L (21-32) 02/13/18 04:55 Anion Gap 9.0 (6-13) 02/13/18 04:55 BUN 11 mg/dL (6-20) 02/13/18 04:55 Creatinine 0.7 mg/dL (0.6-1.2) 02/13/18 04:55 Estimated GFR (MDRD) 108 (>89) 02/13/18 04:55 Glucose 164 mg/dL (70-100) H 02/13/18 04:55 POC Whole Bld Glucose 165 mg/dL (70 - 100) H 02/13/18 16:38 Glycated Hemoglobin 5.3 % (4.6-6.2) 02/10/18 05:25 Estim Average Glucose 105 (70-100) H 02/10/18 05:25 Calcium 8.6 mg/dL (8.5-10.3) 02/13/18 04:55 Magnesium 1.7 mg/dL (1.7-2.8) 02/10/18 05:25 Iron 45 ug/dL (45-182) 02/10/18 05:25 TIBC 259 ug/dL (250-450) 02/10/18 05:25 % Saturation 17 % (20-50) L 02/10/18 05:25 Transferrin 185 mg/dL (180-329) 02/10/18 05:25 Ferritin 36.8 ng/mL (23.9-336.2) 02/10/18 05:25 Total Bilirubin 1.1 mg/dL (0.2-1.0) H 02/13/18 04:55 AST 26 IU/L (10-42) 02/13/18 04:55 ALT 14 IU/L (10-60) 02/13/18 04:55 Alkaline Phosphatase 52 IU/L (42-121) 02/13/18 04:55 Lactate Dehydrogenase 114 IU/L (91-225) 02/10/18 05:25 Troponin I 0.46 ng/mL (<0.49) 02/12/18 04:01 Total Protein 6.2 g/dL (6.7-8.2) L 02/13/18 04:55 Albumin 3.3 g/dL (3.2-5.5) 02/13/18 04:55 Globulin 2.9 g/dL (2.1-4.2) 02/13/18 04:55 Albumin/Globulin Ratio 1.1 (1.0-2.2) 02/13/18 04:55 Lipase 37 U/L (22-51) 02/09/18 17:03 Vitamin B12 425 pg/mL (180-914) 02/10/18 05:25 TSH 1.51 uIU/mL (0.34-5.60) 02/10/18 05:25 Blood Type Cancelled 02/10/18 06:38 Blood Type Recheck O POSITIVE 02/10/18 05:15 Antibody Screen NEGATIVE 02/09/18 17:03 Crossmatch IS Only See Detail 02/09/18 17:03
[2018-02-13] MEDS: ATORVASTATIN 40 MG TABLET PO SCH (20:13)
[2018-02-13] MEDS: INSULIN GLARGINE 300 UNIT/3 ML PEN SUBQ SCH (20:15)
[2018-02-14] MEDS: SODIUM CHLORIDE FLUSH 0.9% 10 ML SYRINGE IVP SCH ×2 (03:08→09:03)
[2018-02-14 05:10] LABS: EOSINOPHILS # (AUTO) 0.1 10^3/uL (0.0-0.7); EOSINOPHILS % (AUTO) 2.9 %; HGB - HEMOGLOBIN 9.4 g/dL (14.0-18.0); LYMPHOCYTES # (AUTO) 0.5 10^3/uL (1.5-3.5); LYMPHOCYTES % (AUTO) 12.9 %; MEAN CORPUSCULAR HEMOGLOBIN 31.3 pg (27.0-31.0); MEAN CORPUSCULAR HGB CONC 35.1 g/dL (32.0-36.0); MEAN CORPUSCULAR VOLUME 89.2 fL (80.0-94.0); MEAN PLATELET VOLUME 7.5 fL (7.4-11.4); MONOCYTES # (AUTO) 0.5 10^3/uL (0.0-1.0); MONOCYTES % (AUTO) 11.7 %; NEUTROPHILS % (AUTO) 71.5 %; PLT - PLATELET COUNT 196 10^3/uL (130-450); RED BLOOD COUNT 2.99 10^6/uL (4.70-6.10); RED CELL DISTRIBUTION WIDTH 15.1 % (12.0-15.0); WHITE BLOOD COUNT 4.2 x10^3/uL (4.8-10.8)
[2018-02-14 05:20] LABS: CALCIUM 8.4 mg/dL (8.5-10.3); CREATININE 0.7 mg/dL (0.6-1.2)
[2018-02-14 05:47] LABS: PT - PROTHROMBIN TIME 32.6 secs (9.9-12.6)
[2018-02-14] MEDS: LEVOTHYROXINE 25 MCG TABLET PO SCH (07:40)
[2018-02-14] MEDS: SENNA 8.6 MG TABLET PO SCH (08:54)
[2018-02-14] MEDS: DOCUSATE SODIUM 250 MG CAPSULE PO SCH (08:54)
[2018-02-14] MEDS: ASPIRIN 325 MG TABLET PO SCH (08:55)
[2018-02-14] MEDS: FERROUS SULFATE 325 MG TABLET PO SCH (08:55)
[2018-02-14] MEDS: oxyCODONE 5 MG TABLET PO PRN ×2 (08:55→12:23)
[2018-02-14] MEDS: MAGNESIUM OXIDE 400 MG TABLET PO SCH (08:55)
[2018-02-14] MEDS: METOPROLOL SUCCINATE 25 MG TABLET PO SCH (08:56)
[2018-02-14] MEDS: POLYETHYLENE GLYCOL 3350 17 GM PACKET PO SCH (08:56)
[2018-02-14] MEDS: INSULIN ASPART 300 UNIT/3 ML PEN SUBQ SCH ×2 (08:59→12:21)
[2018-02-14] MEDS: FAMOTIDINE 20 MG TABLET PO SCH (09:00)
[2018-02-14] MEDS: NICOTINE 21 MG PATCH TOP SCH (09:00)
[2018-02-14] MEDS ORDERED: BISACODYL 10 MG SUPP PR ONE (10:39)
[2018-02-14] MEDS ORDERED: NICOTINE 14 MG PATCH TOP SCH (11:00)
[2018-02-14] MEDS ORDERED: MAGNESIUM HYDROXIDE 2,400 MG/30 ML UDC PO SCH (11:05)
--- NOTE | 2018-02-14 12:06 | Discharge Plan ---
"[facility] - Discharge Plan And Transition Orders Disposition: 03 SNF DC/Xfer Condition: Stable Allergies and Adverse Reactions: Allergies Allergy/AdvReac Type Severity Reaction Status Date / Time No Known Drug Allergies Allergy Verified 02/09/18 16:59 - SNF / [facility] Transition Orders Admit to (Facility): [facility] Under the care of (Name): Dr Luis Miguel Degroot Discharge Diagnosis: 1) Intertrochanteric fracture of R hip with reduction and nailing orthopedic surgery 2) Acute blood loss anemia 3) Chronic Afib 4) SVT 5) DM, type 2, on Insulin 6) HTN 7) Hypothyroidism 8) Macular Degeneration Medicare Certification Statement: I certify that [facility] long-term care is medically necessary on a continuing basis for any of the conditions for which she/he is receiving care during hospitalization. Notify PCP of admission and forward orders to primary provider for signature. Weight on admission and: Weekly Call PCP immediately if weight increases by: 10 kg (if gains >10 kg in a week) Other Notification Orders: Call PCP immediately if patient develops dyspnea, chest pain/tightness or edema. Call for Coumadin order change if INR > 3. House Bowel Program: Yes Additional Bowel Program Orders: If no BM after 2 days, nurse may give M.O.M. 30ml PO PRN and/or ducolax Supp 1 NE and/or MADALYN 250mg P.O., and/or senna 1-2 tabs PO. On day 3 nurse may give repeat above order until residents constipation is resolved. Annual Influenza Vaccine (between Feb 02 and September 01): Yes Two-step PPD per [facility] [id number] or approved exception documents: Yes Treatments & Other Orders: Daily PT Lab Tests or X-ray Orders: Daily INR Medication Orders: PLEASE REFER TO THE DISCHARGE MEDICATION LIST. Insulin Orders?: Yes - Medications New Prescriptions: Acetaminophen [Tylenol] 650 mg PO Q4HR PRN #30 tablet PRN Reason: Pain 1 to 4 oxyCODONE [Roxicodone] 5 mg PO Q6HR PRN #30 tablet PRN Reason: Pain 5 to 7 Insulin Aspart [NovoLOG] 2 - 10 unit SUBQ 0800,1200,1700,2100 #1 pen Metoprolol Succinate [Toprol Xl] 12.5 mg PO BID #60 tablet Nicotine 14 mg Patch [Nicoderm] 1 patch TOP DAILY #7 patch Warfarin [Coumadin] 2.5 mg PO SuTuThSa@1800 #16 tablet - Diet Type: Geriatric Texture: Regular May have monthly special meal: Yes - Therapies | Activity Therapy: Evaluation | Treat if indicated: PT Rehabilitation Potential: Maximize functional status Activity: Wt Bearing as Tolerated Assistance Devices: Wheelchair, Walker Additional Instructions: See Orthopedic doctor in follow-up in 2 weeks for shelly out and new XRay. Insulin Orders - SNF Basal | Correction | Custom Orders: Diagnosis: Diabetes Initiate hypo and hyperglycemia protocols for BG <70 and BG >375. May check BG prn for signs/symptoms of dysglycemia. Frequency of BG checks: [AC/HS] Correction Insulin: - Select the type of insulin below [Choose: Novolog ]100 units /ml insulin inject subq per orders indicate below [] LOW DOSE [] MODERATE DOSE [X] MODERATE/HIGH DOSE [] HIGH DOSE GB UNITS GB UNITS GB UNITS GB UNITS 61-140 0 UNITS 61-140 0 UNITS 61-140 0 UNITS 61-140 0 UNITS 141-175 1 UNITS 141-175 1 UNITS 141-175 2 UNITS 141-175 3 UNITS 176-225 2 UNITS 176-225 3 UNITS 176-225 4 UNITS 176-225 5 UNITS 226-275 3 UNITS 226-275 5 UNITS 226-275 6 UNITS 226-275 7 UNITS 276-325 4 UNITS 276-325 7 UNITS 276-325 8 UNITS 276-325 9 UNITS 326-375 5 UNITS 326-375 9 UNITS 326-375 10 UNITS 326-375 11 UNITS >375 CONTACT MD >375 CONTACT MD >375 CONTACT MD >375 CONTACT MD"
[2018-02-14] MEDS: SODIUM CHLORIDE FLUSH 0.9% 10 ML SYRINGE IVP PRN (12:20)
[2018-02-14] MEDS: ACETAMINOPHEN 325 MG TABLET PO PRN (12:22)
[2018-02-14 13:11] VITALS: BP 101/49
[2018-02-14] MEDS ORDERED: WARFARIN 2.5 MG TABLET PO SCH (18:00)
--- NOTE | 2018-02-24 17:36 | DISCHARGE SUMMARY ---
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 He had pain in the right hip and was diagnosed with a hip fracture in the ER and admitted. HOSPITAL COURSE AND DISCHARGE DIAGNOSES 1. Intertrochanteric fracture of the right hip. The patient required reversal of his elevated INR from being on Coumadin, with vitamin K. The following day, he underwent reduction and nailing of the right hip fracture by Orthopedic Surgery. The patient required a short stay in the ICU (see below), but after stabilization, he was able to start physical therapy and progressed minimally daily. He was discharged to [facility] for further physical therapy rehab. 2. Acute blood loss anemia. The patient had an admission hemoglobin of 11.2. It dropped down to 7.8 immediately after surgery, but he refused a transfusion. However, on postop day 1. this dropped to 7.1, and due to the hypotension (see below), he did agree to have a blood transfusion. His hemoglobin improved to 8.8 then 10.3, and was 9.4 at the time of discharge. 3. Chronic atrial fibrillation. The patient was on warfarin at the time of admission; this required reversal with vitamin K. After this, he had warfarin restarted, and his INR was 3.0 at the time of discharge. The patient's atrial fibrillation was controlled except for the time that he had SVT at a rapid rate (see below). He was started on a beta kyra for rate control. 4. Supraventricular tachycardia. On postop day #1, the patient suddenly became diaphoretic, confused, dropped his blood pressure to 60 systolic, and telemetry showed that he was in wide complex tachycardia at a rate of 200. He received adenosine 6 mg, which only briefly slowed his SVT into atrial fibrillation, then he reverted back to SVT at 190. A 12 mg dose of adenosine was able to convert him to normal sinus rhythm. With this, his blood pressure stabilized. He was moved to the ICU for this event. He required hydration with saline and also received the blood transfusion described above. Troponin values showed an increase from not detectable to 0.45, then 0.51, then 0.46. Because of the flat nature of this elevation, it was felt to be from demand ischemia and not an acute TN. The described that the patient had required cardioversion for a tachy-dysrhythmia of some kind in the past. The patient was put on a beta kyra throughout the rest of the hospital stay and discharged with this. It is advised that he have followup by Cardiology as an outpatient. 5. Diabetes, type 2, on insulin. The patient was on sliding scale glucose coverage and carb controlled diet. His A1c was 5.3 at admission, indicating excellent control. He was discharged on his same regimen as prior to admission. 6. Hypertension. Patient was maintained on his prehospital dose of lisinopril. There were no episodes of poorly controlled high blood pressure while here. 7. Hypothyroidism. The patient was continued on his Synthroid dose. His TSH was measured at 1.51 (within normal limits) at admission. 8. Macular degeneration. The patient was kept on his eyedrops while here. LABS AND IMAGING: Reviewed and summarized above. ALLERGIES: NONE. MEDICATIONS AT THE TIME OF DISCHARGE TO [facility] 1. Tylenol with Benadryl q.p.m. 2. Lipitor 40 mg q.p.m. 3. Cardura XL 8 mg q.p.m. 4. Iron 325 mg b.i.d. 5. Proscar 5 mg daily. 6. Levothyroxine 50 mcg daily. 7. Lisinopril 5 mg daily. 8. Metformin 500 mg b.i.d. 9. Januvia 25 mg daily. 10. Warfarin 5 mg with alternating doses based on INR. 11. Tylenol p.r.n. pain. 12. Oxycodone 5 mg p.r.n. pain. 13. NovoLog insulin sliding scale, 14. Toprol-XL 12.5 mg b.i.d. 15. Nicoderm patch 14 mg topically daily. LABORATORY AND IMAGING: Reviewed and summarized above. CONDITION AT DISCHARGE: Stable. PHYSICAL EXAMINATION VITAL SIGNS: Blood pressure 125/69, pulse of 80 in atrial fibrillation, afebrile, room air saturation 96%. HEENT: Unremarkable. NECK: Without JVD or carotid bruits. CHEST: Clear. HEART: Sounds without murmur. ABDOMEN: Soft and benign. EXTREMITIES: No edema. Right hip mild tenderness. NEUROLOGIC: Intact, but possibly poor memory. CODE STATUS: FULL CODE. FOLLOWUP: Will be determined after his rehab stay for physical therapy at [facility]. Time required to complete this entire discharge, SNF orders, review of chart: 60 minutes. cc: Deonna Soto PA-C TD: 02/24/2018 13:28 [id number]
== END 2018-02-14 13:30 | DRG 481 ==
LOC: EDUNIT# → EDBD → ED 16:51 → MS2 18:15 → ICU 02-11 10:53 → MS3 02-12 19:42
PROVIDERS: ADMIT Nurse Practitioner Gerontology; ATTEND Internal Medicine
PROC: 30233L1 Transfusion of Nonautologous Fresh Plasma into Peripheral Vein, Percutaneous Approach (ICD-10-PCS; 2018-02-09)
PROC: 30233N1 Transfusion of Nonautologous Red Blood Cells into Peripheral Vein, Percutaneous Approach (ICD-10-PCS; 2018-02-09)
PROC: 0QS636Z Reposition Right Upper Femur with Intramedullary Internal Fixation Device, Percutaneous Approach (ICD-10-PCS; principal; 2018-02-10 08:00)
DX: S72.141A Displaced intertrochanteric fracture of right femur, initial encounter for closed fracture (principal); W19.XXXA Unspecified fall, initial encounter; I48.91 Unspecified atrial fibrillation; E11.9 Type 2 diabetes mellitus without complications; D62 Acute posthemorrhagic anemia; I97.89 Other postprocedural complications and disorders of the circulatory system, not elsewhere classified; E87.1 Hypo-osmolality and hyponatremia; I48.2 Chronic atrial fibrillation; E11.65 Type 2 diabetes mellitus with hyperglycemia; I95.9 Hypotension, unspecified; F17.210 Nicotine dependence, cigarettes, uncomplicated; I10 Essential (primary) hypertension; E78.5 Hyperlipidemia, unspecified; N40.0 Benign prostatic hyperplasia without lower urinary tract symptoms; E03.9 Hypothyroidism, unspecified; H35.30 Unspecified macular degeneration; W18.30XA Fall on same level, unspecified, initial encounter; Y92.008 Other place in unspecified non-institutional (private) residence as the place of occurrence of the external cause; Z96.653 Presence of artificial knee joint, bilateral; Z79.01 Long term (current) use of anticoagulants; Z79.84 Long term (current) use of oral hypoglycemic drugs
CPT/HCPCS: 36415; 70450; 71045; 80048; 80053; 82607; 82728; 83036; 83540; 83615; 83690; 83735; 84443; 84466; 84484; 85014; 85018; 85025; 85044; 85379; 85610; 85730; 86850; 86900; 86901; 86920; 87150; 93005; 93306; 99283; 99284

== ENCOUNTER 2018-02-14 13:40 | Outpatient (CLI) | payer MEDICARE, OTHER | END 2018-02-14 13:41 | LOC: EMS 13:40 | PROVIDERS: ATTEND Surgery | DX: R53.1 Weakness (principal) | CPT/HCPCS: A0425; A0428 ==

== ENCOUNTER 2018-04-13 09:23 | Outpatient (CLI) | payer MEDICARE, OTHER | END 2018-04-13 09:24 | disposition E | LOC: EMS 09:23 | PROVIDERS: ATTEND Surgery ==